=== PATIENT | female | born 1945 | race Two or more races ===

== ENCOUNTER → 2020-04-05 07:51 | Outpatient (REF) | payer MEDICARE, SELFPAY ==
--- NOTE | 2020-04-05 | NM_ITS ---
Myocardial perfusion study Indication: Chest pain to evaluate for myocardial ischemia Technique: The patient was brought in for a Lexiscan perfusion study on 04/05/2030. Patient performed low-level exercise and was injected 0.4 mg of Lexiscan intravenously. Within a minute of injection, 25 mCi of sestamibi was given intravenously. Images were obtained using the SPECT gamma camera interlaced with the gating device. Images were obtained in supine position. Resting perfusion study was performed on 04/06/2020. Patient was administered 25 mCi of sestamibi intravenously at rest. Images were then obtained in supine position. Images obtained with and without CT attenuation. Total DLP 80 [id number] Images were processed with the software and compared side to side in short axis, horizontal long axis and vertical long axis views. Findings: The stress perfusion study showed non attenuated images show normal uptake of radiotracer in all segments of LV myocardium. Attenuation corrected images shows minimally reduced uptake in the apex of the LV myocardium.. The gated study shows normal LV systolic function with calculated LVEF of 69%. LV cavity is normal in size. The gated study shows normal wall thickening and contraction of segments. Resting study shows nontender images show normal uptake of radiotracer in all segments of LV myocardium. Gating at rest reveals normal systolic wall motion with ejection fraction at greater than 70 %. The findings are consistent with normal myocardial perfusion. NM/NM natalie perf SPECT rest & str Impression: 1. Myocardial perfusion imaging study shows normal myocardial perfusion 2. Gated LVEF is 69% 3. Transient ischemic dilatation not present EKG is nondiagnostic for ischemia
--- NOTE | 2020-04-05 08:30 | CA_ITS ---
Transthoracic Echocardiogram Patient (Last, First, Middle): Lillian Samson E Gender: Female Date of : 1945 Age: 74 Procedure Date: 04/05/2020 Procedure Type: Transthoracic Echocardiogram Location: OP Height: 157.48 cm Weight: 69. kg BSA: 1.70 m2 Heart Rate: bpm BP: 171 / 87 mmHg Passenger Flagman: Ayla MD: Leroy Mcmahon MD Landscape Photographer: Carl Keating MD Symptoms: R07.9 CHEST PAIN Study Quality: Technically Difficult ECG Rhythm: Sinus Conclusions: - 1. Normal LV systolic function with impaired relaxation filling pattern 2. Limited evaluation of cardiac valves with normal cardiac valvular Doppler 3. Normal RV systolic pressure Findings Procedure Information Contrast agent, definity, is being given per protocol without apparent complications. Left Ventricle Normal left ventricular size, thickness, and systolic function. The visually estimated ejection fraction is between 60-65%. Spectral Doppler is indicative of an impaired relaxation filling pattern. E/E prime ratio is <8, consistent with normal filling pressures. Evidence suggests grade I (mild) diastolic dysfunction. Right Ventricle The right ventricle was not well visualized. Atria The left atrium was not well visualized. Interatrial shunt cannot be excluded. The right atrium was not well visualized. Aortic Valve The aortic valve was not well visualized. There is no aortic valve stenosis. There is no aortic valve regurgitation. Mitral Valve The mitral valve was not well visualized. There is trace mitral valve regurgitation. There is no mitral valve stenosis. Pulmonic Valve The pulmonic valve was not well visualized. Tricuspid Valve The tricuspid valve was not well visualized. There is trace tricuspid valve regurgitation. The right ventricular systolic pressure is normal. The right ventricular systolic pressure is 25 mmHg. There is no evidence of pulmonary hypertension. Great Vessels The aorta was not well visualized. The pulmonary artery was not well visualized. Venous The inferior vena cava is normal in size and collapses greater than 50% with inspiration. Pericardium/Pleural The pericardium was not well visualized. Prior Study Comparison No prior study available for comparison. Measurements 2D Linear Measurements Ao Root: 2.70 2.1-3.5 cm LVOT Diam: 2.00 3.0+(-)1.3 cm 2D Systolic Function EF 4C: 56.70 >55% EF 2C: 62.20 >55% EF BiP: 57.80 >55% Mitral Valve MV Pk E: 0.79 MV PK A: 0.98 MV Decel Time: 180.00 E/A: 0.80 E'Lateral: 7.74 E'Medial: 6.77 E/E' Med: 11.60 E/E' Lat: 10.20 Aortic Valve AoV Pk Maximus: 1.79 AoV Mn Maximus: 1.22 AoV VTI: 0.31 AoV Pk Grad: 13.00 Aov Mn Grad: 7.00 CHARLEY Cont.VTI: 2.29 LVOT LVOT Pk Maximus: 1.24 LVOT Mn Maximus: 0.83 LVOT VTI: 0.23 LVOT Pk Grad: 6.00 LVOT Mn Grad: 3.00 LVOT Diam: 2.00 LVOT Area: 3.14 Diastolic Function MV Pk E: 0.79 MV Pk A: 0.98 E/A: 0.80 E'Medial: 6.77 E/E' Med: 11.60 E' Laterial: 7.74 E/E' Lat: 10.20 Tricuspid Valve TR Pk Maximus: 2.33 TR Pk Grad: 22.00 RA Press: 3.00 RVSP: 25.00 Great Vessels Aorta Ao Root-2D: 2.70 2.0-3.7 cm Ao Asc: 3.30 2.1-3.4 cm Ao Arch: 2.80 Updated in Other Vendor System with Status of Final Carl Keating MD electronically signed on 04/05/2020 1:11:19 PM with status of Final
--- NOTE | 2020-04-05 09:30 | CA_ITS ---
Acquisition Time: 2020-04-05 09:06:31 Total Exercise Time: 00:02:00 Test Indications: Chest Pain Medications: SEE CHART Protocol: LEXISCAN Max HR: 120 BPM 82% of Pred: 145 BPM Max BP: 130/070 mmHG Max Work Load: 1.0 METS Pharmacological stress test using Lexiscan while sitting and kicking her feet. Pt tolerated well, Moderate SOB after lexiscan, that was completly reversed with Aminophyline 75 mg IV. No other anginal sx. EKG without any arrhythmias, non-diagnostic for ischemia. Nuclear images to follow. Normotensive response to test. Test reviewed with Dr. Khan Referred By: Leroy Mcmahon Overread By: Deshawn Shannon
== END ==
LOC: HO.CARD 07:51
PROVIDERS: Visit Provider Internal Medicine Cardiovascular Disease
DX: R07.9 Chest pain, unspecified (principal)
CPT/HCPCS: 78452; 93017; 93306; A9500; J0280; J2785; Q9957

== ENCOUNTER → 2020-04-11 13:46 | Outpatient (BNVA) | payer MEDICARE, SELFPAY | PROVIDERS: PCP Internal Medicine; Referring Provider Internal Medicine; Visit Provider Internal Medicine Cardiovascular Disease | DX: R06.00 Dyspnea, unspecified (principal); R07.89 Other chest pain; J44.9 Chronic obstructive pulmonary disease, unspecified; J96.11 Chronic respiratory failure with hypoxia; M06.9 Rheumatoid arthritis, unspecified; Z79.899 Other long term (current) drug therapy | CPT/HCPCS: 99212 ==

== ENCOUNTER → 2020-04-30 14:44 | Outpatient (BNVA) | payer MEDICARE, SELFPAY | PROVIDERS: PCP Internal Medicine; Visit Provider Hospitalist | DX: J44.9 Chronic obstructive pulmonary disease, unspecified (principal); J96.11 Chronic respiratory failure with hypoxia; J98.4 Other disorders of lung; I50.30 Unspecified diastolic (congestive) heart failure; Z99.81 Dependence on supplemental oxygen | CPT/HCPCS: 99212 ==

== ENCOUNTER 2020-05-02 13:16 | Outpatient (REF) | payer MEDICARE, SELFPAY ==
[2020-05-02 13:35] VITALS: O2SAT 98
[2020-05-02 13:43] LABS: Pt Ventilation O2% ROOM AIR
[2020-05-02 13:55] LABS: ABG PCO2 46 mmhg (32-45); PO2 ABG 71 mmhg (83-108); pH ABG 7.44 (7.35-7.45)
[2020-05-02 13:56] LABS: Base Excess ABG 5.6; HCO3 ABG 30 mmol/l (22-26); Oxygen Saturation ABG 94.7 %
== END 2020-05-02 13:17 | disposition home or self-care (01) ==
LOC: HO.RESP 13:16
PROVIDERS: Internal Medicine Pulmonary Disease; Visit Provider Hospitalist
DX: J44.9 Chronic obstructive pulmonary disease, unspecified (principal)
CPT/HCPCS: 36600; 82803

== ENCOUNTER → 2020-05-15 13:29 | Outpatient (BNVA) | payer MEDICARE, SELFPAY | PROVIDERS: PCP Internal Medicine; Visit Provider Hospitalist | DX: J96.11 Chronic respiratory failure with hypoxia (principal); J96.12 Chronic respiratory failure with hypercapnia; J41.0 Simple chronic bronchitis; J98.4 Other disorders of lung; I50.32 Chronic diastolic (congestive) heart failure | CPT/HCPCS: 99212 ==

== ENCOUNTER 2021-12-30 15:53 | Outpatient (REF) | payer MEDICARE, SELFPAY ==
--- NOTE | ~2021-12-30 | XR_ITS ---
EXAMINATION: XR CHEST CLINICAL INFORMATION: Interstitial pulmonary disease. COMPARISON: CTA chest 03/02/2020. TECHNIQUE: 2 views of the chest were obtained. FINDINGS: There is moderate opacification right lung base likely a combination of infiltrate/atelectasis/pleural effusion. The lungs are hypoexpanded. The left lung is clear. Heart size is enlarged. Pulmonary vascularity is normal. There are compression deformities with cement augmentation mid thoracic spine, likely T8, T9 and T10 vertebra. Also visualized are compression deformities without cement T11, T12, L1 vertebra. XR/XR chest 2V IMPRESSION: Hypoexpanded lungs with right lower lobe diffuse opacity likely a combination of effusion/atelectasis/infiltrate.
[2021-12-30 16:11] LABS: MANUAL DIFF FLAG NO
[2021-12-30 16:32] LABS: Basophils Percent Auto 0.3 % (0-2); Eosinophils Percent Auto 0.2 % (0-4); Hematocrit 37.1 % (37.0-47.0); Hemoglobin 11.3 g/dl (12.0-16.0); Imm Gran Abs Auto 0.15 X10*3/uL (0.00-0.03); Imm Gran Pct Auto 1.3 % (0.0-0.4); Lymphocytes Absolute Auto 1.2 X10*3/uL (1.2-4.9); Lymphocytes Percent Auto 10.4 % (20-40); Mean Corpuscular HGB Conc 30.5 g/dl (31.0-35.0); Mean Corpuscular Hemoglobin 30.6 pg (27.0-33.0); Mean Corpuscular Volume 100.5 fL (80.0-98.0); Mean Platelet Volume 10.7 fL (9.4-12.3); Monocytes Absolute Auto 0.7 X10*3/uL (0.1-1.2); Monocytes Percent Auto 6.1 % (2-11); NRBC Pct Auto 0.2 /100WBC (0.0-0.2); Neutrophils Absolute Auto 9.3 x10*3/uL (2.0-8.3); Neutrophils Percent Auto 81.7 % (45-73); Platelet Count 304 X10*3/uL (160-400); Red Blood Count 3.69 X10*6/uL (4.20-5.50); Red Cell Distribution Width 16.3 % (11.0-16.0); White Blood Count 11.4 X10*3/uL (4.8-10.8)
[2021-12-30 16:50] LABS: Alanine Aminotransferase 13 U/L (0-31); Albumin Level 3.7 g/dL (3.5-5.0); Alkaline Phosphatase 68 U/L (39-117); Anion Gap 10 (12-20); Aspartate Amino Transferase 17 U/L (5-31); Bilirubin Direct 0.2 mg/dL (0.0-0.5); Bilirubin Total 0.3 mg/dL (0.0-1.0); Blood Urea Nitrogen 19 mg/dL (9-16); Calcium 8.8 mg/dL (8.4-10.2); Carbon Dioxide 33 mmol/L (22-29); Chloride 110 mmol/L (96-108); Estimated Glomerular Filt Rate > 60; Glucose Random 124 mg/dL (60-115); Potassium 3.7 mmol/L (3.3-5.1); Sodium 149 mmol/L (135-145); Total Protein 5.7 g/dL (6.5-8.0)
[2021-12-30 16:56] LABS: B Type Natriuretic Peptide 52 pg/mL (<100)
[2021-12-30 17:15] LABS: Erythrocyte Sedimentation Rate 44 MM/HR (0-20)
[2021-12-31 12:32] LABS: Anti Nuclear Antibody Screen NEGATIVE (NEGATIVE)
[2021-12-31 15:17] LABS: Cyclic Citrullinated Peptide 43 UNITS
[2022-01-01 11:36] LABS: Immunoglobulin E 12 kU/L (<OR=114)
== END 2021-12-30 15:54 | disposition home or self-care (01) ==
LOC: HO.XRAY 15:53
PROVIDERS: PCP Internal Medicine; Visit Provider Hospitalist
DX: R07.81 Pleurodynia (principal); J96.11 Chronic respiratory failure with hypoxia; J96.12 Chronic respiratory failure with hypercapnia; J41.0 Simple chronic bronchitis; J98.4 Other disorders of lung; J84.9 Interstitial pulmonary disease, unspecified; G47.33 Obstructive sleep apnea (adult) (pediatric); I50.32 Chronic diastolic (congestive) heart failure
CPT/HCPCS: 36415; 71046; 80048; 80076; 82785; 83880; 85025; 85652; 86038; 86039; 86200; 94618; 99212

== ENCOUNTER → 2022-02-04 13:11 | Outpatient (BNVA) | payer MEDICARE, SELFPAY | PROVIDERS: PCP Internal Medicine; Visit Provider Nurse Practitioner Family | DX: R07.9 Chest pain, unspecified (principal); I25.2 Old myocardial infarction; I50.32 Chronic diastolic (congestive) heart failure; J84.9 Interstitial pulmonary disease, unspecified; J96.11 Chronic respiratory failure with hypoxia; J96.12 Chronic respiratory failure with hypercapnia | CPT/HCPCS: 93005; 99212 ==

== ENCOUNTER → 2022-02-09 19:30 | Outpatient (REF) | payer MEDICARE, SELFPAY | LOC: HO.SL 19:30 | PROVIDERS: PCP Internal Medicine; Visit Provider Hospitalist | DX: G47.33 Obstructive sleep apnea (adult) (pediatric) (principal) | CPT/HCPCS: 95810 ==

== ENCOUNTER → 2022-02-27 14:23 | Outpatient (REF) | payer MEDICARE, SELFPAY ==
--- NOTE | 2022-02-27 14:26 | CA_ITS ---
Transthoracic Echocardiogram Patient (Last, First, Middle): Lillian Samson E Gender: Female Date of : 1945 Age: 76 Procedure Date: 02/27/2022 Procedure Type: Transthoracic Echocardiogram Location: OP Height: 149.86 cm Weight: 56.7 kg BSA: 1.51 m2 Heart Rate: bpm BP: 120 / 68 mmHg Heater Planer Operator: SB Referring MD: Wendy Hess LEAD COOKZachC Symptoms: I21.4 - Non-ST elevation (NSTEMI) myocardial infarction Study Quality: Fair but adequate ECG Rhythm: Sinus arrhythmia Conclusions: - The left ventricular systolic function is normal. The visually estimated ejection fraction is between 55-60%. - Moderate to severe focal hypertrophy of the basal septum. - The basal inferior segment is hypokinetic. - There is mild to moderately decreased right ventricular systolic function. - No obvious valvular pathology seen on this study. Findings Left Ventricle Normal left ventricular cavity size. There is normal left ventricular wall thickness. The left ventricular systolic function is normal. The visually estimated ejection fraction is between 55-60%. E/E prime ratio is between 8 and 15 consistent with indeterminate filling pressures. Evidence suggests grade I (mild) diastolic dysfunction. Moderate to severe focal hypertrophy of the basal septum. Wall Motion Rest Echo Findings The basal inferior segment is hypokinetic. Right Ventricle Normal right ventricular cavity size. There is mild to moderately decreased right ventricular systolic function. Atria Both atria are normal in size. Aortic Valve The aortic valve structure and function is likely normal. There is no aortic valve stenosis. There is no aortic valve regurgitation. Mitral Valve The mitral valve appears normal. There is no mitral valve regurgitation. There is no mitral valve stenosis. Pulmonic Valve The pulmonic valve is likely normal. Tricuspid Valve There is trace tricuspid valve regurgitation. There is no evidence of pulmonary hypertension. Great Vessels The asc aorta is normal in size. Small plaque is seen in the sino tubular ridge. Venous The inferior vena cava is normal in size and collapses less than 50% with inspiration. Pericardium/Pleural There is no evidence of pericardial effusion. Prior Study Comparison Changes noted compared to prior study dated: 04/05/2020. See comments on wall motion and right ventricle. Recommendations, Care & Conclusions No obvious valvular pathology seen on this study. Measurements 2D Linear Measurements IVSd: 0.96 0.6-0.9/0.6-1.0 cm LVIDd: 3.90 3.9-5.3/4.2-5.9 cm LVIDd Index: 2.58 2.4-3.2/2.2-3.1 cm/m2 LVIDs: 2.47 2.0-3.6 cm LVPWd: 1.00 0.7-1.1 cm LA Diam: 2.90 2.7-3.8/3.0-4.0 cm LAIDs Index: 1.92 1.5-2.3 cm/m2 LV Mass: 147.05 67-162/88-224 g LV Mass Index: 97.39 43-95/49-115 g/m2 LVOT Diam: 2.20 3.0+(-)1.3 cm 2D Systolic Function EF 4C: 52.50 >55% EF 2C: 54.00 >55% EF BiP: 53.50 >55% Mitral Valve MV Pk E: 0.51 MV PK A: 0.89 MV Decel Time: 242.00 E/A: 0.60 E'Lateral: 4.90 E'Medial: 2.94 E/E' Med: 17.30 E/E' Lat: 10.40 PHT: 71.00 MVA PHT: 3.10 Decel [place]: 2.11 Aortic Valve AoV Pk Maximus: 1.04 AoV Mn Maximus: 0.71 AoV VTI: 0.18 AoV Pk Grad: 4.00 Aov Mn Grad: 2.00 CHARLEY Cont.VTI: 3.50 LVOT LVOT Pk Maximus: 0.80 LVOT Mn Maximus: 0.55 LVOT VTI: 0.16 LVOT Pk Grad: 3.00 LVOT Mn Grad: 1.00 LVOT Diam: 2.20 LVOT Area: 3.80 Diastolic Function MV Pk E: 0.51 MV Pk A: 0.89 E/A: 0.60 E'Medial: 2.94 E/E' Med: 17.30 E' Laterial: 4.90 E/E' Lat: 10.40 Right Ventricle TAPSE (mm): 10.20 TVS' Maximus: 9.57 Tricuspid Valve RA Press: 8.00 Great Vessels Aorta Sinus of Valsalva: 3.10 2.0-3.5 cm Ao Asc: 3.50 2.1-3.4 cm Pulmonary Valve PV Pk Maximus: 0.74 Peak PV Grad: 2.00 Updated in Other Vendor System with Status of Final Aden Khan MD electronically signed on 02/28/2022 9:35:23 AM with status of Final
== END ==
LOC: HO.CARD 14:23
PROVIDERS: Visit Provider Nurse Practitioner Family
DX: R07.9 Chest pain, unspecified (principal); I50.32 Chronic diastolic (congestive) heart failure; I21.4 Non-ST elevation (NSTEMI) myocardial infarction
CPT/HCPCS: 93306

== ENCOUNTER → 2022-02-28 14:06 | Outpatient (BNVA) | payer MEDICARE, SELFPAY | PROVIDERS: PCP Internal Medicine; Visit Provider Hospitalist | DX: J96.11 Chronic respiratory failure with hypoxia (principal); J96.12 Chronic respiratory failure with hypercapnia; J41.0 Simple chronic bronchitis; J98.4 Other disorders of lung; I50.32 Chronic diastolic (congestive) heart failure; J84.9 Interstitial pulmonary disease, unspecified | CPT/HCPCS: 99212 ==

== ENCOUNTER → 2022-03-04 09:42 | Outpatient (REF) | payer MEDICARE, SELFPAY ==
--- NOTE | ~2022-03-04 | NM_ITS ---
Myocardial perfusion study Indication: NSTEMI to evaluate for myocardial ischemia Technique: The patient was brought in for a Lexiscan perfusion study on 03/04/2022. Patient performed low-level exercise and was injected 0.4 mg of Lexiscan intravenously. Within a minute of injection, 25 mCi of sestamibi was given intravenously. Images were obtained using the SPECT gamma camera interlaced with the gating device. Images were obtained in supine position. Resting perfusion study was performed on 03/19/2022. Patient was administered 25 mCi of sestamibi intravenously at rest. Images were then obtained in supine position. Images obtained with and without CT attenuation. Total DLP 100 mGy-cm. Images were processed with the software and compared side to side in short axis, horizontal long axis and vertical long axis views. Findings: The stress perfusion study showed non attenuated images show overall normal uptake of radiotracer in all segments of LV myocardium. Attenuation corrected images show minimally reduced uptake in the apex of the LV myocardium.. The gated study shows normal LV systolic function with visually estimated LVEF of greater than 60%. LV cavity is normal size. The gated study shows normal systolic wall thickening and contraction of segments. Resting study shows non attenuated images show mildly reduced uptake in the inferolateral wall of the LV myocardium. Attenuation corrected images show no change compared to stress perfusion study. Gating at rest reveals normal systolic wall motion with ejection fraction at greater than 70%. The findings are consistent with likely normal myocardial perfusion. SD/NM cardiolite stress test Impression: 1. Myocardial perfusion imaging study shows likely normal myocardial perfusion 2. Gated LVEF is greater than 70% 3. Transient ischemic dilatation not present EKG is nondiagnostic for ischemia
--- NOTE | 2022-03-04 09:45 | CA_ITS ---
Acquisition Time: 2022-03-04 10:47:49 Total Exercise Time: 00:02:00 Test Indications: CP, SOB Medications: SEE CHART Protocol: LEXISCAN Max HR: 134 BPM 93% of Pred: 143 BPM Max BP: 132/088 mmHG Max Work Load: 1.0 METS Pharmacological stress test with Lexiscan injection, while sitting and kicking her legs, with moderate sob and feeling of pressure in back of head, no chest discomfort, with isolated PACs, PVCs, one ventricular cuplet, wth normotensive response to injection, with nondiagnostic EKG for ischemia. In recovery she was treated with Aminophylline 75 mg IVP to reverse Lexiscan with resolution of symptoms. Nuclear images pending. Test reviewed with Dr Mcmahon Referred By: Wendy Hess Overread By: WENDY HESS
== END ==
LOC: HO.CARD 09:42
PROVIDERS: Visit Provider Nurse Practitioner Family
DX: I21.4 Non-ST elevation (NSTEMI) myocardial infarction (principal); R07.9 Chest pain, unspecified; J84.9 Interstitial pulmonary disease, unspecified; J96.11 Chronic respiratory failure with hypoxia; J96.12 Chronic respiratory failure with hypercapnia
CPT/HCPCS: 78452; 93017; A9500; J0280; J2785

== ENCOUNTER → 2022-04-01 13:58 | Outpatient (BNVA) | payer MEDICARE, SELFPAY | PROVIDERS: PCP Internal Medicine; Visit Provider Nurse Practitioner Family | DX: I21.4 Non-ST elevation (NSTEMI) myocardial infarction (principal); R07.9 Chest pain, unspecified; J84.9 Interstitial pulmonary disease, unspecified; I50.32 Chronic diastolic (congestive) heart failure; J96.11 Chronic respiratory failure with hypoxia; J96.12 Chronic respiratory failure with hypercapnia | CPT/HCPCS: 99212 ==

== ENCOUNTER 2022-05-08 17:49 | Inpatient (IN) | payer MEDICARE, SELFPAY ==
--- NOTE | ~2022-05-08 | CT_ITS ---
CT ANGIOGRAM NECK WITH CONTRAST CT ANGIOGRAM BRAIN WITH CONTRAST CLINICAL INFORMATION: TIAs. COMPARISON: None available. TECHNIQUE: Test bolus sequences followed by intravenous administration 85 mL of Omnipaque 350. Helical imaging was performed in the axial plane from the thoracic inlet to the skull vertex. Delayed postcontrast imaging of the head was also performed. The data was processed at the polysomnography technologist workstation for generation of MIP sequences. Angled MIPs and volume rendered reformatted images were also generated at an offline 3D workstation under concurrent supervision. Stenoses are assessed in accordance with NASCET criteria unless otherwise indicated. This CT examination was performed using dose optimization techniques as appropriate, variously including the following: *Automated exposure control *Adjustment of mA and/or kV according to patient size (this includes techniques or standardized protocols for targeted exams where dose is matched to indication/reason for exam; i.e. extremities or head) *Use of iterative reconstruction technique FINDINGS: BRAIN: There is increased density and enhancement along the periphery of the right central sulcus. It is difficult to assess whether this reflects cortical increased density versus sulcal increased density as could be seen in acute subarachnoid hemorrhage. MRI would be helpful in further assessment. There is no mass effect and there are no large acute territorial infarcts. [There is no hydrocephalus, extra-axial surface collection, midline shift, or other herniation pattern. [place] to white matter differentiation is diffusely maintained without evidence of an evolved acute territorial infarct. The basilar cisterns are preserved. No significant soft tissue abnormality. No acute osseous abnormality. There are large bilateral mastoid effusions and the left middle ear cavity is partially opacified. Left sphenoid sinus is completely opacified, and the maxillary sinuses are nearly completely opacified bilaterally, and the anterior left ethmoid air cells are partially opacified. CERVICAL SOFT TISSUES AND LUNG APICES: [Postoperative changes following posterior instrumented fusion from the occiput through the C5 level. There is significant lucency surrounding the C5 lateral mass screws bilaterally compatible with hardware loosening. There is also significant lucency surrounding the distal aspect of the vertical connecting rods that deforms the posterior elements of C7 on T1. There are surgical/orthopedic consultation advised. Advanced spondylitic changes at C5-C6 and C6-C7. Multinodular thyroid gland including a dominant 1.6 cm nodule within the left thyroid lobe that should be further assessed with ultrasound. NECK CTA: [There is a classic 3 vessel configuration of the aortic arch. Proximal arch vessels are non-stenotic. The vertebral arteries are codominant. No significant ostial stenosis is visualized on either side. Both vertebral arteries are widely patent throughout their extracranial cervical course. Retropharyngeal course of the common carotid arteries bilaterally and the proximal internal carotid arteries bilaterally. Common carotid arteries and the cervical internal carotid arteries remain widely patent. BRAIN CTA: [There is normal opacification of major intracranial arteries. No focal flow-limiting stenosis nor discrete proximal large artery occlusion. No aneurysm. Timing of the contrast bolus allows assessment of the major dural venous sinuses, which all opacify normally] CT/CT angio head neck IMPRESSION: - There is increased density and enhancement along the periphery of the right central sulcus. It is difficult to assess whether this reflects cortical increased density as could be seen with cortical laminar necrosis versus sulcal increased density as could be seen in acute subarachnoid hemorrhage with reactive enhancement or alternative pathology. MRI of the brain with and without IV contrast would be helpful in further assessment. There is no mass effect and there are no large acute territorial infarcts. -No acute arterial occlusions and no significant arterial stenoses within the head or neck. - There are large bilateral mastoid effusions and the left middle ear cavity is partially opacified. Left sphenoid sinus is completely opacified, and the maxillary sinuses are nearly completely opacified bilaterally, and the anterior left ethmoid air cells are partially opacified. - Postoperative changes following posterior instrumented fusion from the occiput through the C5 level. There is significant lucency surrounding the C5 lateral mass screws bilaterally compatible with hardware loosening. There is also significant lucency surrounding the distal aspect of the vertical connecting rods that deforms the posterior elements of C7 and T1. There are surgical/orthopedic consultation advised. Advanced spondylitic changes at C5-C6 and C6-C7. There is significant lucency involving the odontoid process measuring near fat density that should be correlated with previous CT studies if available. Chronic appearing widening of the atlantodental interval. - Multinodular thyroid gland including a dominant 1.6 cm nodule within the left thyroid lobe that should be further assessed with ultrasound. Findings discussed with Dr. Joseph at 10:03 PM on 05/08/2022.
--- NOTE | ~2022-05-08 | CT_ITS ---
EXAMINATION: CT CHEST WITHOUT CONTRAST CLINICAL INFORMATION: Pain. Rule out pneumonia. COMPARISON: Previous chest x-ray December 2021 and chest CTA February 2020 TECHNIQUE: Multidetector volumetric CT imaging of the chest was done. Axial MIP volume rendering provided. Sagittal and coronal reformatted images were obtained. This CT examination was performed using dose optimization techniques as appropriate, variously including the following: *Automated exposure control *Adjustment of mA and/or kV according to patient size (this includes techniques or standardized protocols for targeted exams where dose is matched to indication/reason for exam; i.e. extremities or head) *Use of iterative reconstruction technique DLP: 223 mGy-cm FINDINGS: LUNGS: There is elevation of the right hemidiaphragm. There is atelectasis or consolidation of the adjacent right middle and right lower lobes. There is subsegmental atelectasis in the bilateral upper lobes. There is mild bronchial wall thickening, increased peribronchial attenuation and groundglass attenuation in the left lower lobe suggestive of bronchopneumonia. There is a 8 mm left lower lobe nodule axial image 153 series 7 this is new from 2020 exam. MEDIASTINUM: Normal heart size. No pericardial effusion. Mild coronary artery calcification. Tortuous thoracic aorta. No enlarged hilar or mediastinal lymph nodes. CORONARY ARTERY CALCIFICATION: Mild PLEURA: Trace right pleural effusion or pleural thickening. AXILLA: No lymphadenopathy. UPPER ABDOMEN: There is a large stone in the upper pole of the right kidney. There is a small calcification in the liver. OSSEOUS STRUCTURES: There are multiple thoracic vertebral body compression fractures. There is evidence of cement cement augmentation. There is a moderate T4 vertebral body compression fracture that appears sclerotic and may be recent. There is mild anterior subluxation of C7 with respect to C6 and T1 that is stable. There are postsurgical changes to the cervical spine. There are postsurgical changes to the right humerus. Multiple old left rib fractures. CT/CT chest wo IV con IMPRESSION: Left lower lobe bronchopneumonia. Elevation of the right hemidiaphragm and atelectasis or consolidation of the adjacent right middle and right lower lobes. Trace right pleural effusion or pleural thickening. 8 mm left lower lobe nodule. According to the UPDATED 2017 Fleischner Society recommendations, the advised follow-up imaging for 6-8 mm nodule: 6-12 and 18-[address] follow-up for low and high risk patients. Multiple thoracic vertebral body compression fractures. There is a moderate T4 vertebral body compression fracture that appears sclerotic and may be recent. Fleischner guidelines were followed.
--- NOTE | ~2022-05-08 | MR_ITS ---
EXAMINATION: MR BRAIN WITHOUT AND WITH CONTRAST CLINICAL INFORMATION: Transient ischemic attack like symptoms. COMPARISON: CT angiogram of the head 05/08/2022. TECHNIQUE: Multiplanar MR imaging of the brain was performed without and with contrast. A total of 5.5 mL Gadavist was utilized for this examination. FINDINGS: There is subarachnoid blood filling the left precentral sulcus, the signal characteristics of which indicate a late subacute age and there is hemosiderin staining along the margins of the hematoma demonstrated on susceptibility weighted imaging. No acute territorial infarct. Intracranial vascular flow voids are grossly maintained. There are scattered nonspecific foci of T2 FLAIR signal hyperintensity primarily distributed within the periventricular white matter. Postcontrast images reveal no abnormal intracranial mass or enhancement. No intracranial mass effect or midline shift shift. Lateral and third ventricles are normal. No hydrocephalus. Bridging bone fuses the craniocervical junction and multiple consecutive vertebral segments within the upper cervical spine. Cervicomedullary cells and mastoid air cells and middle ear cavities. There is also severe paranasal sinus disease. Incidental note is made of a persistent hyperplastic primary vitreous within the left globe. MR/MR head/brain wo/w con IMPRESSION: There is a late subacute subarachnoid blood filling the right central sulcus which coincides with the findings associated on the recent CT angiogram of the head from 05/08/2022. The etiology of this blood is uncertain. No identifiable mass or worrisome enhancement at or adjacent to the hemorrhage. Otherwise no acute intracranial finding. Specifically no evidence of acute territorial infarct. Numerous chronic small vessel ischemic changes are visualized within the periventricular white matter and riki. Additional incidental findings include fluid filling the mastoid air cells and middle ear cavities. Severe paranasal sinus disease. Persistent hyperplastic primary vitreous of the left globe. Chronic changes of a craniocervical fusion.
--- NOTE | ~2022-05-08 | XR_ITS ---
EXAMINATION: XR ABDOMEN KUB CLINICAL INDICATION: MRI screening. COMPARISON: None TECHNIQUE: AP view of the abdomen. FINDINGS: There is a nonobstructive bowel gas pattern. Mild gas and stool are seen within the colon distally to the rectum. Residual contrast is seen within the renal collecting systems and urinary bladder. The osseous structures are unremarkable. XR/XR KUB IMPRESSION: 1. Nonobstructive bowel gas pattern. 2. Mild colonic stool burden. 3. Residual contrast within the renal collecting system/urinary bladder.
[2022-05-08 18:58] VITALS: BP 175/97; PULSE 103; RESP 20; TEMP 36.2; O2SAT 90; BMI 23.4
--- NOTE | 2022-05-08 19:01 | ECG_ITS ---
Test Reason : ?STROKE Blood Pressure : / mmHG Vent. Rate : 092 BPM Atrial Rate : 092 BPM P-R Int : 132 ms QRS Dur : 070 ms QT Int : 362 ms P-R-T Axes : 035 -21 032 degrees QTc Int : 447 ms Normal sinus rhythm Inferior infarct , age undetermined Abnormal ECG No previous ECGs available Referred By: Kenn James Electronically Signed By:Leroy Mcmahon
--- NOTE | 2022-05-08 19:02 | ED_ITS ---
HPI - General Adult General Chief complaint: Neuro Symptoms/Deficit <DORCAS Mayo - Last Filed: 05/11/22 10:00> Stated complaint: left facial droop and numbness <DORCAS Mayo - Last Filed: 05/11/22 10:00> Time Seen by Provider: 05/08/22 19:12 <DORCAS Mayo - Last Filed: 05/11/22 10:00> Related Data Home medications: Home Medications Medication Instructions Recorded Confirmed aspirin 81 mg tablet,delayed 81 mg PO DAILY 12/30/21 05/09/22 release atorvastatin 40 mg tablet 1 tab PO DAILY 05/09/22 05/09/22 fluticasone propionate 220 2 puff inhalation BID 05/09/22 05/09/22 mcg/actuation HFA aerosol inhaler (Flovent HFA) lisinopril 5 mg tablet 1 tab PO DAILY 05/09/22 05/09/22 meclizine 25 mg tablet 1 tab PO QAM 05/09/22 05/09/22 metoprolol succinate 100 mg 1.5 tab PO DAILY 05/09/22 05/09/22 tablet,extended release 24 hr mirtazapine 30 mg tablet 1 tab PO BEDTIME 05/09/22 05/09/22 montelukast 10 mg tablet 1 tab PO DAILY 05/09/22 05/09/22 pantoprazole 40 mg tablet,delayed 1 tab PO DAILY 05/09/22 05/09/22 release prednisone 5 mg tablet 1 tab PO TID 05/09/22 05/09/22 tramadol 50 mg tablet 1 tab PO TID PRN Pain 05/09/22 05/09/22 venlafaxine 75 mg capsule,extended 1 cap PO DAILY 05/09/22 05/09/22 release 24 hr <DORCAS Mayo - Last Filed: 05/11/22 10:00> Allergies/adverse reactions: Allergies Allergy/AdvReac Type Severity Reaction Status Date / Time codeine Allergy Severe hives Verified 04/01/22 14:19 <DORCAS Mayo - Last Filed: 05/11/22 10:00> PMF Past Medical History Medical History: Medical History Chronic respiratory failure Chronic restrictive lung disease COPD (chronic obstructive pulmonary disease) Diastolic CHF MORENO (dyspnea on exertion) ILD (interstitial lung disease) Pleuritic chest pain <DORCAS Mayo - Last Filed: 05/11/22 10:00> Social History Social History: Social History Household Members: Family Housing: Apartment Do you presently have visiting nurse or other home services: Yes Alcohol intake: never Patient Tobacco Use Status: Never used Tobacco service: No Current occupational status: disabled <DORCAS Mayo - Last Filed: 05/11/22 10:00> Physical Exam ED Vital Signs: Vital Signs - 24 hr 05/08/22 18:58 05/08/22 19:31 05/08/22 22:22 Temperature 97.2 F 98.1 F 98.4 F Pulse Rate 103 H 96 92 Respiratory Rate 20 21 H 22 H Blood Pressure 175/97 H 177/95 H 148/76 H Pulse Oximetry 90 L 96 97 Oxygen Delivery Method Room Air Nasal Cannula Room Air Oxygen Flow Rate 2 05/09/22 00:37 Temperature 98.1 F Pulse Rate 84 Respiratory Rate 22 H Blood Pressure 138/75 Pulse Oximetry 97 Oxygen Delivery Method Nasal Cannula Oxygen Flow Rate 2 BMI result Body Mass Index 23.4 <DORCAS Mayo - Last Filed: 05/11/22 10:00> Vital Signs - 24 hr 05/08/22 18:58 05/08/22 19:31 05/08/22 22:22 Temperature 97.2 F 98.1 F 98.4 F Pulse Rate 103 H 96 92 Respiratory Rate 20 21 H 22 H Blood Pressure 175/97 H 177/95 H 148/76 H Pulse Oximetry 90 L 96 97 Oxygen Delivery Method Room Air Nasal Cannula Room Air Oxygen Flow Rate 2 05/09/22 00:37 Temperature 98.1 F Pulse Rate 84 Respiratory Rate 22 H Blood Pressure 138/75 Pulse Oximetry 97 Oxygen Delivery Method Nasal Cannula Oxygen Flow Rate 2 BMI result Body Mass Index 23.4 <Al Joseph MD - Last Filed: 05/09/22 02:26> Course Course Course Narrative: ALBERTA: Brought to the ED for resolved left facial droop that occurred at 4:30pm and left arm numbness. Patiend and daughter states symptoms resolved after 5 minutes. Daugher states patient has had this everyday for the past 3 days at the same time. Presently no neuro deficits. generalized pain due to Rheamutoid arthritis. labs and HEad CT scan ordered. Charged nurse notified and went to room 3. Informed Dr[address] Joseph about case and orders placed. NIH score 0. Not on any blood thinners or history of brain bleed. <DORCAS Mayo - Last Filed: 05/11/22 10:00> Medications Administered Generic Name Dose Route Start Last Admin Trade Name Freq PRN Reason Stop Dose Admin Acetaminophen 650 mg 05/09/22 00:52 05/10/22 16:30 Acetaminophen 325 Mg Tablet PO 650 mg Q6H PRN Administration Pain, Mild (Pain Scale 1-3) Atorvastatin Calcium 40 mg 05/09/22 09:00 05/11/22 09:10 Atorvastatin Calcium 40 Mg Tablet PO 40 mg DAILY CEDRIC Administration Fluticasone Propionate 2 puff 05/09/22 20:00 05/11/22 07:56 Fluticasone Propionate 250 Mcg Blst.W.Dev INHALE 2 puff RBID CEDRIC Administration Azithromycin 500 mg/ Sodium 250 mls @ 125 mls/hr 05/09/22 07:00 05/11/22 09:25 Chloride IV Infused Q24H CEDRIC Infusion Ceftriaxone Sodium 1 gm/ 50 mls @ 100 mls/hr 05/09/22 23:00 05/10/22 20:20 Sodium Chloride IV Infused Q24H CEDRIC Infusion Lisinopril 5 mg 05/09/22 09:00 05/11/22 09:11 Lisinopril 5 Mg Tablet PO 5 mg DAILY CEDRIC Administration Protocol Meclizine HCl 25 mg 05/09/22 08:15 05/11/22 09:11 Meclizine Hcl 25 Mg Tablet PO 25 mg DAILY CEDRIC Administration Metoprolol Succinate 150 mg 05/09/22 09:00 05/11/22 09:09 Metoprolol Succinate Er 50 Mg Tab.Er.24h PO 150 mg DAILY CEDRIC Administration Protocol Mirtazapine 30 mg 05/09/22 21:00 05/10/22 19:38 Mirtazapine 30 Mg Tablet PO 30 mg BEDTIME CEDRIC Administration Montelukast Sodium 10 mg 05/09/22 09:00 05/11/22 09:09 Montelukast Sodium 10 Mg Tablet PO 10 mg DAILY CEDRIC Administration Omeprazole 20 mg 05/11/22 06:30 05/11/22 09:10 Omeprazole 20 Mg Capsule.Dr PO 20 mg DAILY@0630 CEDRIC Administration Prednisone 5 mg 05/09/22 09:00 05/11/22 09:11 Prednisone 5 Mg Tablet PO 5 mg TID CEDRIC Administration Sodium Chloride 3 ml 05/09/22 08:00 05/11/22 09:09 0.9 % Sodium Chloride Flush 3 Ml Syringe IVFLUSH Not Given QSHIFT [facility] Venlafaxine HCl 75 mg 05/09/22 21:00 05/10/22 19:38 Venlafaxine Hcl Er 75 Mg Cap.Er.24h PO 75 mg BEDTIME CEDRIC Administration Discontinued Medications Generic Name Dose Route Start Last Admin Trade Name Freq PRN Reason Stop Dose Admin Gadobutrol 7.5 ml 05/09/22 14:39 05/09/22 14:40 Gadobutrol 7.5 Ml Vial IVPUSH 05/09/22 14:40 5.5 ml ONCE ONE Administration Heparin Sodium (Porcine) 5,000 unit 05/09/22 01:00 05/09/22 01:42 Heparin Sodium,Porcine 5,000 Unit/Ml Vial SUBCUT 5,000 unit Q12H CEDRIC Administration Hydroxyzine HCl 25 mg 05/09/22 20:15 05/09/22 20:24 Hydroxyzine Hcl 25 Mg Tablet PO 05/09/22 20:16 25 mg ONCE ONE Administration Ceftriaxone Sodium 1 gm/ 50 mls @ 100 mls/hr 05/08/22 22:21 05/08/22 23:47 Sodium Chloride IV 05/08/22 22:50 Infused ONCE ONE Infusion Doxycycline Hyclate 100 mg/ 250 mls @ 166.67 mls/hr 05/08/22 22:22 05/09/22 02:00 Sodium Chloride IV 05/08/22 23:51 Infused ONCE ONE Infusion Iohexol 85 ml 05/08/22 21:00 05/08/22 21:16 Iohexol 350 Mg/Ml 100 Ml Infus..Btl IV 05/08/22 21:01 85 ml ONCE ONE Administration Venlafaxine HCl 75 mg 05/09/22 09:00 05/09/22 10:37 Venlafaxine Hcl Er 75 Mg Cap.Er.24h PO Not Given DAILY CEDRIC <DORCAS Mayo - Last Filed: 05/11/22 10:00> Medications Administered Generic Name Dose Route Start Last Admin Trade Name Carlos PRN Reason Stop Dose Admin Acetaminophen 650 mg 05/09/22 00:52 05/10/22 16:30 Acetaminophen 325 Mg Tablet PO 650 mg Q6H PRN Administration Pain, Mild (Pain Scale 1-3) Atorvastatin Calcium 40 mg 05/09/22 09:00 05/11/22 09:10 Atorvastatin Calcium 40 Mg Tablet PO 40 mg DAILY CEDRIC Administration Fluticasone Propionate 2 puff 05/09/22 20:00 05/11/22 07:56 Fluticasone Propionate 250 Mcg Blst.W.Dev INHALE 2 puff RBID CEDRIC Administration Azithromycin 500 mg/ Sodium 250 mls @ 125 mls/hr 05/09/22 07:00 05/11/22 09:25 Chloride IV Infused Q24H CEDRIC Infusion Ceftriaxone Sodium 1 gm/ 50 mls @ 100 mls/hr 05/09/22 23:00 05/10/22 20:20 Sodium Chloride IV Infused Q24H CEDRIC Infusion Lisinopril 5 mg 05/09/22 09:00 05/11/22 09:11 Lisinopril 5 Mg Tablet PO 5 mg DAILY CEDRIC Administration Protocol Meclizine HCl 25 mg 05/09/22 08:15 05/11/22 09:11 Meclizine Hcl 25 Mg Tablet PO 25 mg DAILY CEDRIC Administration Metoprolol Succinate 150 mg 05/09/22 09:00 05/11/22 09:09 Metoprolol Succinate Er 50 Mg Tab.Er.24h PO 150 mg DAILY CEDRIC Administration Protocol Mirtazapine 30 mg 05/09/22 21:00 05/10/22 19:38 Mirtazapine 30 Mg Tablet PO 30 mg BEDTIME CEDRIC Administration Montelukast Sodium 10 mg 05/09/22 09:00 05/11/22 09:09 Montelukast Sodium 10 Mg Tablet PO 10 mg DAILY CEDRIC Administration Omeprazole 20 mg 05/11/22 06:30 05/11/22 09:10 Omeprazole 20 Mg Capsule.Dr PO 20 mg DAILY@0630 CEDRIC Administration Prednisone 5 mg 05/09/22 09:00 05/11/22 09:11 Prednisone 5 Mg Tablet PO 5 mg TID CEDRIC Administration Sodium Chloride 3 ml 05/09/22 08:00 05/11/22 09:09 0.9 % Sodium Chloride Flush 3 Ml Syringe IVFLUSH Not Given QSHIFT CEDRIC Venlafaxine HCl 75 mg 05/09/22 21:00 05/10/22 19:38 Venlafaxine Hcl Er 75 Mg Cap.Er.24h PO 75 mg BEDTIME CEDRIC Administration Discontinued Medications Generic Name Dose Route Start Last Admin Trade Name Maurilioq PRN Reason Stop Dose Admin Gadobutrol 7.5 ml 05/09/22 14:39 05/09/22 14:40 Gadobutrol 7.5 Ml Vial IVPUSH 05/09/22 14:40 5.5 ml ONCE ONE Administration Heparin Sodium (Porcine) 5,000 unit 05/09/22 01:00 05/09/22 01:42 Heparin Sodium,Porcine 5,000 Unit/Ml Vial SUBCUT 5,000 unit Q12H CEDRIC Administration Hydroxyzine HCl 25 mg 05/09/22 20:15 05/09/22 20:24 Hydroxyzine Hcl 25 Mg Tablet PO 05/09/22 20:16 25 mg ONCE ONE Administration Ceftriaxone Sodium 1 gm/ 50 mls @ 100 mls/hr 05/08/22 22:21 05/08/22 23:47 Sodium Chloride IV 05/08/22 22:50 Infused ONCE ONE Infusion Doxycycline Hyclate 100 mg/ 250 mls @ 166.67 mls/hr 05/08/22 22:22 05/09/22 02:00 Sodium Chloride IV 05/08/22 23:51 Infused ONCE ONE Infusion Iohexol 85 ml 05/08/22 21:00 05/08/22 21:16 Iohexol 350 Mg/Ml 100 Ml Infus..Btl IV 05/08/22 21:01 85 ml ONCE ONE Administration Venlafaxine HCl 75 mg 05/09/22 09:00 05/09/22 10:37 Venlafaxine Hcl Er 75 Mg Cap.Er.24h PO Not Given DAILY CEDRIC <Al Joseph MD - Last Filed: 05/09/22 02:26> Medical Decision Making [facility] Narrative Medical decision making narrative: Patient with what sounds like TIA symptoms each day in the evening for the last 3 days. Symptoms and signs were left facial droop, left mouth numbness, apparent aphasia. This was all reported by the . The patient had recovered by the time she was evaluated in the emergency department. Patient also has some chronic lung disease and was noted to be hypoxic on arrival. CT of the chest without contrast did show evidence of pneumonia. The patient was treated with Rocephin and doxycycline for this. CT of the brain also showed some subtle abnormalities, could not rule out small subarachnoid hemorrhage versus infarction, recommended MRI with and without contrast. Case was discussed with Neurology on-call, Dr. Espinoza, who felt the patient could be admitted to the hospital here since there is no emergent condition. Case discussed with Dr. Poole of the hospitalist service and the patient is being admitted to hospital here. <Al Joseph MD - Last Filed: 05/09/22 02:26> Lab Data Lab results reviewed: Yes I reviewed the patient's lab results. <Al Joseph MD - Last Filed: 05/09/22 02:26> Result diagrams: : 05/09/22 05:54 05/09/22 05:54 <DORCAS Mayo - Last Filed: 05/11/22 10:00> Labs: Lab Results 05/08/22 05/08/22 05/08/22 Range/Units 19:53 19:53 19:53 WBC 11.8 H (4.8-10.8) X10*3/uL RBC 3.40 L (4.20-5.50) X10*6/uL Hgb 10.7 L (12.0-16.0) g/dl Hct 36.1 L (37.0-47.0) % MCV 106.2 H (80.0-98.0) fL MCH 31.5 (27.0-33.0) pg MCHC 29.6 L (31.0-35.0) g/dl RDW 15.0 (11.0-16.0) % Plt Count 291 (160-400) X10*3/uL MPV 10.7 (9.4-12.3) fL Immature Gran % (Auto) 1.2 H (0.0-0.4) % Neut % (Auto) 75.1 H (45-73) % Lymph % (Auto) 15.7 L (20-40) % [place] % (Auto) 6.8 (2-11) % Eos % (Auto) 0.7 (0-4) % Baso % (Auto) 0.5 (0-2) % Lymph # (Auto) 1.9 (1.2-4.9) X10*3/uL [place] # (Auto) 0.8 (0.1-1.2) X10*3/uL Eos # (Auto) 0.1 (0.0-0.4) X10*3/uL Baso # (Auto) 0.1 (0.0-0.2) X10*3/uL Abs Immat Gran (auto) 0.14 H (0.00-0.03) X10*3/uL Absolute Neuts (auto) 8.9 H (2.0-8.3) x10*3/uL Absolute Nucleated RBC 0.020 H (0.0-0.012) X10*3/uL Nucleated RBC % (auto) 0.2 (0.0-0.2) /100WBC PT 10.3 (10.0-13.1) SEC INR 0.9 (0.9-1.1) APTT 23.4 L (26.0-36.4) SEC Sodium 144 (135-145) mmol/L Potassium 4.9 D (3.3-5.1) mmol/L Chloride 101 (96-108) mmol/L Carbon Dioxide 38 H (22-29) mmol/L Anion Gap 10 L (12-20) BUN 21 H (9-16) mg/dL Creatinine 0.67 (0.5-1.4) mg/dL Estim Creat Clear Calc 50.5 Estimated GFR > 60 Random Glucose 112 (60-115) mg/dL Lactic Acid (0.5-2.0) mmol/L Calcium 9.7 D (8.4-10.2) mg/dL Total Bilirubin 0.4 (0.0-1.0) mg/dL AST 27 (5-31) U/L ALT 19 (0-31) U/L Alkaline Phosphatase 87 (39-117) U/L Troponin I High Sens (<3.5-17.0) ng/L Total Protein 5.8 L (6.5-8.0) g/dL Albumin 3.5 (3.5-5.0) g/dL Influenza Type A (PCR) (Negative) Influenza Type B (PCR) (Negative) RSV RNA Qual (PCR) (Negative) SARS-CoV-2 RNA (RT-PCR) (Negative) 05/08/22 05/08/22 05/08/22 Range/Units 19:53 19:53 23:02 WBC (4.8-10.8) X10*3/uL RBC (4.20-5.50) X10*6/uL Hgb (12.0-16.0) g/dl Hct (37.0-47.0) % MCV (80.0-98.0) fL MCH (27.0-33.0) pg MCHC (31.0-35.0) g/dl RDW (11.0-16.0) % Plt Count (160-400) X10*3/uL MPV (9.4-12.3) fL Immature Gran % (Auto) (0.0-0.4) % Neut % (Auto) (45-73) % Lymph % (Auto) (20-40) % [place] % (Auto) (2-11) % Eos % (Auto) (0-4) % Baso % (Auto) (0-2) % Lymph # (Auto) (1.2-4.9) X10*3/uL [place] # (Auto) (0.1-1.2) X10*3/uL Eos # (Auto) (0.0-0.4) X10*3/uL Baso # (Auto) (0.0-0.2) X10*3/uL Abs Immat Gran (auto) (0.00-0.03) X10*3/uL Absolute Neuts (auto) (2.0-8.3) x10*3/uL Absolute Nucleated RBC (0.0-0.012) X10*3/uL Nucleated RBC % (auto) (0.0-0.2) /100WBC PT (10.0-13.1) SEC INR (0.9-1.1) APTT (26.0-36.4) SEC Sodium (135-145) mmol/L Potassium (3.3-5.1) mmol/L Chloride (96-108) mmol/L Carbon Dioxide (22-29) mmol/L Anion Gap (12-20) BUN (9-16) mg/dL Creatinine (0.5-1.4) mg/dL Estim Creat Clear Calc Estimated GFR Random Glucose (60-115) mg/dL Lactic Acid 0.8 (0.5-2.0) mmol/L Calcium (8.4-10.2) mg/dL Total Bilirubin (0.0-1.0) mg/dL AST (5-31) U/L ALT (0-31) U/L Alkaline Phosphatase (39-117) U/L Troponin I High Sens 9.9 (<3.5-17.0) ng/L Total Protein (6.5-8.0) g/dL Albumin (3.5-5.0) g/dL Influenza Type A (PCR) NEGATIVE (Negative) Influenza Type B (PCR) NEGATIVE (Negative) RSV RNA Qual (PCR) NEGATIVE (Negative) SARS-CoV-2 RNA (RT-PCR) NEGATIVE (Negative) <DORCAS Mayo - Last Filed: 05/11/22 10:00> Lab Results 05/08/22 05/08/22 05/08/22 Range/Units 19:53 19:53 19:53 WBC 11.8 H (4.8-10.8) X10*3/uL RBC 3.40 L (4.20-5.50) X10*6/uL Hgb 10.7 L (12.0-16.0) g/dl Hct 36.1 L (37.0-47.0) % MCV 106.2 H (80.0-98.0) fL MCH 31.5 (27.0-33.0) pg MCHC 29.6 L (31.0-35.0) g/dl RDW 15.0 (11.0-16.0) % Plt Count 291 (160-400) X10*3/uL MPV 10.7 (9.4-12.3) fL Immature Gran % (Auto) 1.2 H (0.0-0.4) % Neut % (Auto) 75.1 H (45-73) % Lymph % (Auto) 15.7 L (20-40) % [place] % (Auto) 6.8 (2-11) % Eos % (Auto) 0.7 (0-4) % Baso % (Auto) 0.5 (0-2) % Lymph # (Auto) 1.9 (1.2-4.9) X10*3/uL [place] # (Auto) 0.8 (0.1-1.2) X10*3/uL Eos # (Auto) 0.1 (0.0-0.4) X10*3/uL Baso # (Auto) 0.1 (0.0-0.2) X10*3/uL Abs Immat Gran (auto) 0.14 H (0.00-0.03) X10*3/uL Absolute Neuts (auto) 8.9 H (2.0-8.3) x10*3/uL Absolute Nucleated RBC 0.020 H (0.0-0.012) X10*3/uL Nucleated RBC % (auto) 0.2 (0.0-0.2) /100WBC PT 10.3 (10.0-13.1) SEC INR 0.9 (0.9-1.1) APTT 23.4 L (26.0-36.4) SEC Sodium 144 (135-145) mmol/L Potassium 4.9 D (3.3-5.1) mmol/L Chloride 101 (96-108) mmol/L Carbon Dioxide 38 H (22-29) mmol/L Anion Gap 10 L (12-20) BUN 21 H (9-16) mg/dL Creatinine 0.67 (0.5-1.4) mg/dL Estim Creat Clear Calc 50.5 Estimated GFR > 60 Random Glucose 112 (60-115) mg/dL Lactic Acid (0.5-2.0) mmol/L Calcium 9.7 D (8.4-10.2) mg/dL Total Bilirubin 0.4 (0.0-1.0) mg/dL AST 27 (5-31) U/L ALT 19 (0-31) U/L Alkaline Phosphatase 87 (39-117) U/L Troponin I High Sens (<3.5-17.0) ng/L Total Protein 5.8 L (6.5-8.0) g/dL Albumin 3.5 (3.5-5.0) g/dL Influenza Type A (PCR) (Negative) Influenza Type B (PCR) (Negative) RSV RNA Qual (PCR) (Negative) SARS-CoV-2 RNA (RT-PCR) (Negative) 1205/08/22 05/08/22 Range/Units 19:53 19:53 23:02 WBC (4.8-10.8) X10*3/uL RBC (4.20-5.50) X10*6/uL Hgb (12.0-16.0) g/dl Hct (37.0-47.0) % MCV (80.0-98.0) fL MCH (27.0-33.0) pg MCHC (31.0-35.0) g/dl RDW (11.0-16.0) % Plt Count (160-400) X10*3/uL MPV (9.4-12.3) fL Immature Gran % (Auto) (0.0-0.4) % Neut % (Auto) (45-73) % Lymph % (Auto) (20-40) % [place] % (Auto) (2-11) % Eos % (Auto) (0-4) % Baso % (Auto) (0-2) % Lymph # (Auto) (1.2-4.9) X10*3/uL [place] # (Auto) (0.1-1.2) X10*3/uL Eos # (Auto) (0.0-0.4) X10*3/uL Baso # (Auto) (0.0-0.2) X10*3/uL Abs Immat Gran (auto) (0.00-0.03) X10*3/uL Absolute Neuts (auto) (2.0-8.3) x10*3/uL Absolute Nucleated RBC (0.0-0.012) X10*3/uL Nucleated RBC % (auto) (0.0-0.2) /100WBC PT (10.0-13.1) SEC INR (0.9-1.1) APTT (26.0-36.4) SEC Sodium (135-145) mmol/L Potassium (3.3-5.1) mmol/L Chloride (96-108) mmol/L Carbon Dioxide (22-29) mmol/L Anion Gap (12-20) BUN (9-16) mg/dL Creatinine (0.5-1.4) mg/dL Estim Creat Clear Calc Estimated GFR Random Glucose (60-115) mg/dL Lactic Acid 0.8 (0.5-2.0) mmol/L Calcium (8.4-10.2) mg/dL Total Bilirubin (0.0-1.0) mg/dL AST (5-31) U/L ALT (0-31) U/L Alkaline Phosphatase (39-117) U/L Troponin I High Sens 9.9 (<3.5-17.0) ng/L Total Protein (6.5-8.0) g/dL Albumin (3.5-5.0) g/dL Influenza Type A (PCR) NEGATIVE (Negative) Influenza Type B (PCR) NEGATIVE (Negative) RSV RNA Qual (PCR) NEGATIVE (Negative) SARS-CoV-2 RNA (RT-PCR) NEGATIVE (Negative) <Al Joseph MD - Last Filed: 05/09/22 02:26> Imaging Data CT chest without contrast: Radiologist's impression: IMPRESSION: Left lower lobe bronchopneumonia. Elevation of the right hemidiaphragm and atelectasis or consolidation of the adjacent right middle and right lower lobes. Trace right pleural effusion or pleural thickening. 8 mm left lower lobe nodule. According to the UPDATED 2017 Fleischner Society recommendations, the advised follow-up imaging for 6-8 mm nodule: 6-12 and 18-[address] follow-up for low and high risk patients. Multiple thoracic vertebral body compression fractures. There is a moderate T4 vertebral body compression fracture that appears sclerotic and may be recent. <Al Joseph MD - Last Filed: 05/09/22 02:26> CT brain/CTA head and neck: Radiologist's impression: IMPRESSION: - There is increased density and enhancement along the periphery of the right central sulcus. It is difficult to assess whether this reflects cortical increased density as could be seen with cortical laminar necrosis versus sulcal increased density as could be seen in acute subarachnoid hemorrhage with reactive enhancement or alternative pathology. MRI of the brain with and without IV contrast would be helpful in further assessment. There is no mass effect and there are no large acute territorial infarcts. ? -No acute arterial occlusions and no significant arterial stenoses within the head or neck. ? - There are large bilateral mastoid effusions and the left middle ear cavity is partially opacified. Left sphenoid sinus is completely opacified, and the maxillary sinuses are nearly completely opacified bilaterally, and the anterior left ethmoid air cells are partially opacified. ? - Postoperative changes following posterior instrumented fusion from the occiput through the C5 level. There is significant lucency surrounding the C5 lateral mass screws bilaterally compatible with hardware loosening. There is also significant lucency surrounding the distal aspect of the vertical connecting rods that deforms the posterior elements of C7 and T1. There are surgical/orthopedic consultation advised. Advanced spondylitic changes at C5-C6 and C6-C7. There is significant lucency involving the odontoid process measuring near fat density that should be correlated with previous CT studies if available. Chronic appearing widening of the atlantodental interval. ? - Multinodular thyroid gland including a dominant 1.6 cm nodule within the left thyroid lobe that should be further assessed with ultrasound. ? <Al Joseph MD - Last Filed: 05/09/22 02:26> ECG Data Attestation: I personally reviewed and interpreted this ECG as follows: <Al Joseph MD - Last Filed: 05/09/22 02:26> Interpretation: Sinus rhythm with a rate of 92. Prominent R-wave in lead V1. No terrell ST elevation or depression. 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 <Al Joseph MD - Last Filed: 05/09/22 02:26> Discharge Plan Discharge Clinical Impression: Brain TIA, Pneumonia <DORCAS Mayo - Last Filed: 05/11/22 10:00> Patient Disposition: Admitted As Inpatient <DORCAS Mayo - Last Filed: 05/11/22 10:00> Interventions: Admission Worksheet (ED) Last Done: 05/09/22 20:58 <DORCAS aMyo - Last Filed: 05/11/22 10:00> Discharge Date/Time: 05/09/22 08:30 <DORCAS Mayo - Last Filed: 05/11/22 10:00>
--- NOTE | 2022-05-08 19:24 | ED.NEUROSD ---
HPI - Neuro Symptoms/Deficit General Chief Complaint: Neuro Symptoms/Deficit Stated Complaint: left facial droop and numbness Time Seen by Provider: 05/08/22 19:12 Source: patient and family Limitations: no limitations History of Present Illness HPI Narrative: This is a 76-year-old female with a history of myocardial infarction, also pneumonia, respiratory failure, who has been having left-sided facial symptoms and expressive aphasia per the for the last 3 days off and on. The patient states that every evening from the time the patient has been eating supper, she has developed left facial droop and not been able to speak and had some numbness also to the left side of her face. also noted that the patient's hand seemed cold tonight when this happen. Symptoms have now resolved. Patient has had a posterior headache off and on. She also has had chest pain for about a month. She does have chronic dyspnea, is on CPAP at home when she sleeps. notes that she does have history of a collapsed lung. She has had associated nausea and abdominal pain with the TIA like symptoms each evening. Related Data Home Medications Medication Instructions Recorded Confirmed fluticasone propionate 220 2 puff inhalation BID 04/11/20 02/04/22 mcg/actuation HFA aerosol inhaler fluticasone propionate 50 intranasal 04/11/20 02/04/22 mcg/actuation nasal spray,suspension hydroxychloroquine 200 mg tablet 200 mg PO BID 04/11/20 02/04/22 leflunomide 10 mg tablet 10 mg PO DAILY 04/11/20 02/04/22 meclizine 25 mg tablet mg PO 04/11/20 02/04/22 mirtazapine 30 mg tablet 30 mg PO BEDTIME 04/11/20 02/04/22 montelukast 10 mg tablet 10 mg PO DAILY 04/11/20 02/04/22 nitroglycerin 0.4 mg sublingual mg sublingual 04/11/20 02/04/22 tablet tramadol 50 mg tablet 50 mg PO Q6H PRN 04/11/20 02/04/22 aspirin 81 mg tablet,delayed 81 mg PO DAILY 12/30/21 02/04/22 release atorvastatin 40 mg tablet 40 mg PO DAILY 12/30/21 02/04/22 lisinopril 5 mg tablet 5 mg PO DAILY 12/30/21 02/04/22 pantoprazole 40 mg tablet,delayed 40 mg PO DAILY 12/30/21 02/04/22 release prednisone 5 mg tablet 5 mg PO BID 12/30/21 02/04/22 venlafaxine 75 mg capsule,extended 75 mg PO DAILY 12/30/21 02/04/22 release 24 hr famotidine 20 mg tablet 20 mg PO 02/04/22 02/04/22 atorvastatin 40 mg tablet 1 tab PO DAILY 05/09/22 05/09/22 fluticasone propionate 220 2 puff inhalation BID 05/09/22 05/09/22 mcg/actuation HFA aerosol inhaler (Flovent HFA) lisinopril 5 mg tablet 1 tab PO DAILY 05/09/22 05/09/22 losartan 50 mg tablet 1 tab PO QAM 05/09/22 05/09/22 meclizine 25 mg tablet 1 tab PO QAM 05/09/22 05/09/22 metoprolol succinate 100 mg 1.5 tab PO DAILY 05/09/22 05/09/22 tablet,extended release 24 hr mirtazapine 30 mg tablet 1 tab PO BEDTIME 05/09/22 05/09/22 montelukast 10 mg tablet 1 tab PO DAILY 05/09/22 05/09/22 pantoprazole 40 mg tablet,delayed 1 tab PO DAILY 05/09/22 05/09/22 release prednisone 5 mg tablet 1 tab PO TID 05/09/22 05/09/22 ticagrelor 90 mg tablet (Brilinta) 1 tab PO BID 05/09/22 05/09/22 tramadol 50 mg tablet 1 tab PO TID PRN Pain 05/09/22 05/09/22 venlafaxine 75 mg capsule,extended 1 cap PO DAILY 05/09/22 05/09/22 release 24 hr Previous Rx's Medication Instructions Recorded metoprolol succinate 100 mg 100 mg PO DAILY #90 tabs 04/01/22 tablet,extended release 24 hr metoprolol succinate 50 mg 50 mg PO DAILY 90 days #90 tabs 04/01/22 tablet,extended release 24 hr Allergies Allergy/AdvReac Type Severity Reaction Status Date / Time codeine Allergy Severe hives Verified 04/01/22 14:19 Review of Systems Constitutional: Constitutional: Reports as per HPI and Denies fever(s) Eyes: Eyes: Reports as per HPI and Reports no additional eye complaints ENT: Reports system reviewed and no additional complaints, except as documented, Reports as per HPI, Denies nasal congestion, Denies nasal discharge and Denies sore throat Cardiovascular: Cardiovascular: Reports as per HPI, Reports chest pain and Denies dyspnea Respiratory: Respiratory: Reports as per HPI, Denies cough and Denies dyspnea Gastrointestinal: Gastrointestinal: Reports as per HPI, Reports abdominal pain, Reports diarrhea, Reports nausea and Denies vomiting Genitourinary: Genitourinary: Reports as per HPI, Denies hematuria, Denies urinary frequency and Denies dysuria Musculoskeletal: Musculoskeletal: Reports no additional musculoskeletal complaints and Reports numbness Integumentary/Breasts: Skin/Breast: Reports as per HPI and Denies rash Neurologic: Reports as per HPI, Reports Abnormal speech present (Was not getting words out per ), Reports focal weakness and Reports numbness Psychiatric: Psychiatric: Reports no additional psychiatric complaints and Reports as per HPI Endocrine: Endocrine: Reports no additional endocrine complaints and Reports as per HPI Hematologic/Lymphatic: Hematologic/Lymphatic: Reports no additional hematologic/lymphatic complaints, Reports as per HPI and Reports other (No peripheral edema) [facility] Past Medical History Medical History Chronic respiratory failure Chronic restrictive lung disease COPD (chronic obstructive pulmonary disease) Diastolic CHF MORENO (dyspnea on exertion) ILD (interstitial lung disease) Pleuritic chest pain Social History Social History Alcohol intake: never Patient Tobacco Use Status: Never used Tobacco Smoked in Last 30 Days: No Use of substances other than those prescribed or required for medical reasons: No Advance Directives: No Advance Directives Information Provided: No Physical Exam Vital Signs: Vital Signs: Last Vital Signs Temp 98.2 F 05/09/22 01:45 Pulse 84 05/09/22 01:45 Resp 21 H 05/09/22 01:45 BP 138/74 05/09/22 01:45 Pulse Ox 97 05/09/22 01:45 O2 Del Method 05/09/22 01:45 O2 Flow Rate 2 05/09/22 00:37 BMI result Body Mass Index 23.4 Const: General: cooperative, comfortable and no acute distress Orientation/consciousness: patient oriented x3 Neck: Other: Sitting upright, JVD more difficult to assess Neck: Yes normal visual inspection Carotids: normal carotid upstroke Resp: Effort & Inspection: normal respiratory effort and able to speak in complete sentences Auscultation: not clear to auscultation bilaterally (Diminished especially on the right side), no crackles, rales (Few scattered rales), no rhonchi and no wheezes Cardio: Jugular venous distension: no JVD Rate: regular rate Rhythm: regular rhythm Heart sounds: S1 normal heart sound present, S2 normal heart sound present, no gallops, no murmurs and no rubs GI: Inspection: Yes normal to inspection Neuro: Other: No cranial nerve deficits, no motor or sensory deficits. General: patient oriented x3 Speech: Abnormal speech present (Was not getting words out per ) Extrem: Other: 1+ lower leg and ankle edema General: Yes no pedal edema Psych: Appearance: grossly normal Mental Status: mental status grossly normal Speech and movement: Normal speech and movement present Medications Administered Generic Name Dose Route Start Last Admin Trade Name Freq PRN Reason Stop Dose Admin Heparin Sodium (Porcine) 5,000 unit 05/09/22 01:00 05/09/22 01:42 Heparin Sodium,Porcine 5,000 Unit/Ml Vial SUBCUT 5,000 unit Q12H CEDRIC Administration Discontinued Medications Generic Name Dose Route Start Last Admin Trade Name Freq PRN Reason Stop Dose Admin Ceftriaxone Sodium 1 gm/ 50 mls @ 100 mls/hr 05/08/22 22:21 05/08/22 23:47 Sodium Chloride IV 05/08/22 22:50 Infused ONCE ONE Infusion Doxycycline Hyclate 100 mg/ 250 mls @ 166.67 mls/hr 05/08/22 22:22 05/08/22 23:46 Sodium Chloride IV 05/08/22 23:51 166.67 mls/hr ONCE ONE Administration Iohexol 85 ml 05/08/22 21:00 05/08/22 21:16 Iohexol 350 Mg/Ml 100 Ml Infus..Btl IV 05/08/22 21:01 85 ml ONCE ONE Administration MDM - Neuro Symptoms/Deficit MDM Narrative Medical decision making narrative: Patient with chronic lung disease, presented with hypoxia and 3 days of GI symptoms. CT of the chest without contrast did show evidence of pneumonia. The patient is treated with Rocephin and doxycycline. CT of the brain with CTA of the head neck showed some subtle findings consistent for small subarachnoid hemorrhage versus an area of necrosis. Patient is being admitted to the hospital for MRI of the brain with without contrast. Case was discussed with Neurology and with Dr. Poole or of the hospitalist service Lab Data Attestation: I reviewed the patient's lab results. Result diagrams: 05/08/22 19:53 05/08/22 19:53 Labs: Lab Results 05/08/22 05/08/22 05/08/22 Range/Units 19:53 19:53 19:53 WBC 11.8 H (4.8-10.8) X10*3/uL RBC 3.40 L (4.20-5.50) X10*6/uL Hgb 10.7 L (12.0-16.0) g/dl Hct 36.1 L (37.0-47.0) % MCV 106.2 H (80.0-98.0) fL MCH 31.5 (27.0-33.0) pg MCHC 29.6 L (31.0-35.0) g/dl RDW 15.0 (11.0-16.0) % Plt Count 291 (160-400) X10*3/uL MPV 10.7 (9.4-12.3) fL Immature Gran % (Auto) 1.2 H (0.0-0.4) % Neut % (Auto) 75.1 H (45-73) % Lymph % (Auto) 15.7 L (20-40) % [place] % (Auto) 6.8 (2-11) % Eos % (Auto) 0.7 (0-4) % Baso % (Auto) 0.5 (0-2) % Lymph # (Auto) 1.9 (1.2-4.9) X10*3/uL [place] # (Auto) 0.8 (0.1-1.2) X10*3/uL Eos # (Auto) 0.1 (0.0-0.4) X10*3/uL Baso # (Auto) 0.1 (0.0-0.2) X10*3/uL Abs Immat Gran (auto) 0.14 H (0.00-0.03) X10*3/uL Absolute Neuts (auto) 8.9 H (2.0-8.3) x10*3/uL Absolute Nucleated RBC 0.020 H (0.0-0.012) X10*3/uL Nucleated RBC % (auto) 0.2 (0.0-0.2) /100WBC PT 10.3 (10.0-13.1) SEC INR 0.9 (0.9-1.1) APTT 23.4 L (26.0-36.4) SEC Sodium 144 (135-145) mmol/L Potassium 4.9 D (3.3-5.1) mmol/L Chloride 101 (96-108) mmol/L Carbon Dioxide 38 H (22-29) mmol/L Anion Gap 10 L (12-20) BUN 21 H (9-16) mg/dL Creatinine 0.67 (0.5-1.4) mg/dL Estim Creat Clear Calc 50.5 Estimated GFR > 60 Random Glucose 112 (60-115) mg/dL Lactic Acid (0.5-2.0) mmol/L Calcium 9.7 D (8.4-10.2) mg/dL Total Bilirubin 0.4 (0.0-1.0) mg/dL AST 27 (5-31) U/L ALT 19 (0-31) U/L Alkaline Phosphatase 87 (39-117) U/L Troponin I High Sens (<3.5-17.0) ng/L Total Protein 5.8 L (6.5-8.0) g/dL Albumin 3.5 (3.5-5.0) g/dL Influenza Type A (PCR) (Negative) Influenza Type B (PCR) (Negative) RSV RNA Qual (PCR) (Negative) SARS-CoV-2 RNA (RT-PCR) (Negative) 05/08/22 05/08/22 05/08/22 Range/Units 19:53 19:53 23:02 WBC (4.8-10.8) X10*3/uL RBC (4.20-5.50) X10*6/uL Hgb (12.0-16.0) g/dl Hct (37.0-47.0) % MCV (80.0-98.0) fL MCH (27.0-33.0) pg MCHC (31.0-35.0) g/dl RDW (11.0-16.0) % Plt Count (160-400) X10*3/uL MPV (9.4-12.3) fL Immature Gran % (Auto) (0.0-0.4) % Neut % (Auto) (45-73) % Lymph % (Auto) (20-40) % [place] % (Auto) (2-11) % Eos % (Auto) (0-4) % Baso % (Auto) (0-2) % Lymph # (Auto) (1.2-4.9) X10*3/uL [place] # (Auto) (0.1-1.2) X10*3/uL Eos # (Auto) (0.0-0.4) X10*3/uL Baso # (Auto) (0.0-0.2) X10*3/uL Abs Immat Gran (auto) (0.00-0.03) X10*3/uL Absolute Neuts (auto) (2.0-8.3) x10*3/uL Absolute Nucleated RBC (0.0-0.012) X10*3/uL Nucleated RBC % (auto) (0.0-0.2) /100WBC PT (10.0-13.1) SEC INR (0.9-1.1) APTT (26.0-36.4) SEC Sodium (135-145) mmol/L Potassium (3.3-5.1) mmol/L Chloride (96-108) mmol/L Carbon Dioxide (22-29) mmol/L Anion Gap (12-20) BUN (9-16) mg/dL Creatinine (0.5-1.4) mg/dL Estim Creat Clear Calc Estimated GFR Random Glucose (60-115) mg/dL Lactic Acid 0.8 (0.5-2.0) mmol/L Calcium (8.4-10.2) mg/dL Total Bilirubin (0.0-1.0) mg/dL AST (5-31) U/L ALT (0-31) U/L Alkaline Phosphatase (39-117) U/L Troponin I High Sens 9.9 (<3.5-17.0) ng/L Total Protein (6.5-8.0) g/dL Albumin (3.5-5.0) g/dL Influenza Type A (PCR) NEGATIVE (Negative) Influenza Type B (PCR) NEGATIVE (Negative) RSV RNA Qual (PCR) NEGATIVE (Negative) SARS-CoV-2 RNA (RT-PCR) NEGATIVE (Negative) Discharge Plan Discharge Clinical Impression: Brain TIA, Pneumonia
[2022-05-08 19:31] VITALS: BP 177/95; PULSE 96; RESP 21; TEMP 36.7; O2SAT 96
[2022-05-08 20:02] LABS: MANUAL DIFF FLAG NO
[2022-05-08 20:04] LABS: Basophils Absolute Auto 0.1 X10*3/uL (0.0-0.2); Basophils Percent Auto 0.5 % (0-2); Eosinophils Absolute Auto 0.1 X10*3/uL (0.0-0.4); Eosinophils Percent Auto 0.7 % (0-4); Hematocrit 36.1 % (37.0-47.0); Hemoglobin 10.7 g/dl (12.0-16.0); Imm Gran Abs Auto 0.14 X10*3/uL (0.00-0.03); Imm Gran Pct Auto 1.2 % (0.0-0.4); Lymphocytes Absolute Auto 1.9 X10*3/uL (1.2-4.9); Lymphocytes Percent Auto 15.7 % (20-40); Mean Corpuscular HGB Conc 29.6 g/dl (31.0-35.0); Mean Corpuscular Hemoglobin 31.5 pg (27.0-33.0); Mean Corpuscular Volume 106.2 fL (80.0-98.0); Mean Platelet Volume 10.7 fL (9.4-12.3); Monocytes Absolute Auto 0.8 X10*3/uL (0.1-1.2); Monocytes Percent Auto 6.8 % (2-11); NRBC Pct Auto 0.2 /100WBC (0.0-0.2); Neutrophils Absolute Auto 8.9 x10*3/uL (2.0-8.3); Neutrophils Percent Auto 75.1 % (45-73); Platelet Count 291 X10*3/uL (160-400); White Blood Count 11.8 X10*3/uL (4.8-10.8)
[2022-05-08 20:20] LABS: INTERNATIONAL NORM RATIO 0.9 (0.9-1.1); Prothrombin Time 10.3 SEC (10.0-13.1)
[2022-05-08 20:24] LABS: Alanine Aminotransferase 19 U/L (0-31); Albumin Level 3.5 g/dL (3.5-5.0); Alkaline Phosphatase 87 U/L (39-117); Anion Gap 10 (12-20); Aspartate Amino Transferase 27 U/L (5-31); Bilirubin Total 0.4 mg/dL (0.0-1.0); Blood Urea Nitrogen 21 mg/dL (9-16); Calcium 9.7 mg/dL (8.4-10.2); Carbon Dioxide 38 mmol/L (22-29); Chloride 101 mmol/L (96-108); Creatinine Clr Calc Pharmacy 50.5; Estimated Glomerular Filt Rate > 60; Glucose Random 112 mg/dL (60-115); Potassium 4.9 mmol/L (3.3-5.1); Sodium 144 mmol/L (135-145); Total Protein 5.8 g/dL (6.5-8.0)
[2022-05-08 20:26] LABS: Partial Thromboplastin Time 23.4 SEC (26.0-36.4)
[2022-05-08 20:29] LABS: Troponin-I High Sensitivity 9.9 ng/L (<3.5-17.0)
[2022-05-08 20:46] LABS: Influenza A PCR NEGATIVE (Negative); Influenza B PCR NEGATIVE (Negative); Resp Syncy Virus RNA Qual PCR NEGATIVE (Negative); SARS COV2 PCR INHOUSE NEGATIVE (Negative)
[2022-05-08] MEDS: iohexoL 350 MG/ML 100 ML INFUS..BTL 85 ML IV (21:16)
[2022-05-08 22:22] VITALS: BP 148/76; PULSE 92; RESP 22; TEMP 36.9; O2SAT 97
[2022-05-08] MEDS: cefTRIAXone sodium 1 GM in 0.9 % Sodium Chloride 50 ML IV (23:17)
[2022-05-08 23:18] LABS: Lactic Acid 0.8 mmol/L (0.5-2.0)
[2022-05-08] MEDS: Doxycycline Hyclate 100 MG in 0.9 % Sodium Chloride 250 ML 166.67 MG IV (23:46)
[2022-05-09] VITALS (9 sets, daily range): BP systolic 125–139; BP diastolic 61–84; PULSE 77–114; RESP 16–26; TEMP 36.6–36.9; O2SAT 91–99
[2022-05-09] MEDS: Heparin Sodium,Porcine 5,000 UNIT/ML VIAL 5000 UNIT SUBCUT (01:42)
[2022-05-09 06:06] LABS: Basophils Percent Auto 0.3 % (0-2); Eosinophils Absolute Auto 0.1 X10*3/uL (0.0-0.4); Eosinophils Percent Auto 0.6 % (0-4); Hematocrit 32.3 % (37.0-47.0); Hemoglobin 9.6 g/dl (12.0-16.0); Imm Gran Abs Auto 0.14 X10*3/uL (0.00-0.03); Imm Gran Pct Auto 1.2 % (0.0-0.4); Lymphocytes Absolute Auto 1.8 X10*3/uL (1.2-4.9); Lymphocytes Percent Auto 15.8 % (20-40); Mean Corpuscular HGB Conc 29.7 g/dl (31.0-35.0); Mean Corpuscular Volume 104.2 fL (80.0-98.0); Mean Platelet Volume 11.4 fL (9.4-12.3); Monocytes Absolute Auto 0.5 X10*3/uL (0.1-1.2); Monocytes Percent Auto 4.4 % (2-11); Neutrophils Absolute Auto 8.8 x10*3/uL (2.0-8.3); Neutrophils Percent Auto 77.7 % (45-73); PLT CLUMP 1; Red Cell Distribution Width 15.1 % (11.0-16.0); SCAN SMEAR FLAG 1
[2022-05-09 06:11] LABS: MANUAL DIFF FLAG NO; White Blood Count 11.4 X10*3/uL (4.8-10.8)
--- NOTE | 2022-05-09 06:19 | PM.IMHP ---
History of Present Illness Date of Service: 05/09/22 Chief Complaint: facial droop, and weakness 76-year-old Frisian-speaking female with past medical history of COPD, chronic restrictive lung disease, diastolic CHF, and NSTEMI presents to the hospital with complaints of left facial droop, as well as left arm weakness. Patient reports that she had 3 episodes within the past 3 days last episode at 4th 30 p.m. on day of presentation. Patient reports numbness, as well as weakness in her left upper extremity. Slurred speech, and facial droop during these episodes. Each episode lasting 5-10 minutes and resolving spontaneously. Patient has also been complaining of midsternal chest pain, for the past 3 days during the similar episodes. These also last about 10 minutes, vague about how he feels, and the pain is intermittent resolving spontaneously. Patient reports a fall about 15 days ago, but does not recall hitting her head. Patient does answer questions appropriately but very hard to get much history out of her and after repeat questions multiple times with the help of an court interpreter. She denies any abdominal pain at this time, has nausea with no vomiting, no diarrhea or constipation, no urinary symptoms and no lower extremity edema. On arrival to the ED patient found to be tachycardic with heart rate of 103, blood pressure 175/97, satting 90% on room air Labs are significant for WBC count of 11.8, hemoglobin of 10.7, hematocrit 36.1, Chest CT shows left lower lobe bronchopneumonia, consolidation of the adjacent right middle and right lower lobes, and an 8 mm nodule Head and neck CT angiogram shows increased density and enhancement along the periphery of the right central sulcus, difficult to assess whether this reflects cortical increased density as could be seen with cortical laminar necrosis versus increased density as could be seen in acute subarachnoid hemorrhage with reactive enhancement or alternative pathology. This case was discussed with Neurology, recommended admission to the hospital with MRI in the morning. Patient also has postoperative changes following posterior instrument fusion with significant lucency compatible with hardware loosening Patient will be admitted for further management Review of Systems Review of Systems: Yes all other systems are reviewed and are negative [facility] Medical History Chronic respiratory failure Chronic restrictive lung disease COPD (chronic obstructive pulmonary disease) Diastolic CHF MORENO (dyspnea on exertion) ILD (interstitial lung disease) Pleuritic chest pain Social History Alcohol intake: never Patient Tobacco Use Status: Never used Tobacco Smoked in Last 30 Days: No Use of substances other than those prescribed or required for medical reasons: No Advance Directives: No Advance Directives Information Provided: No Meds Allergies Allergy/AdvReac Type Severity Reaction Status Date / Time codeine Allergy Severe hives Verified 04/01/22 14:19 Active Medications: Current Medications Acetaminophen (Acetaminophen 325 Mg Tablet) 650 mg PO Q6H PRN PRN Reason: Pain, Mild (Pain Scale 1-3) Heparin Sodium (Porcine) (Heparin Sodium,Porcine 5,000 Unit/Ml Vial) 5,000 unit SUBCUT Q12H [facility] Last Admin: 05/09/22 01:42 Dose: 5,000 unit Ondansetron HCl (Ondansetron Hcl 4 Mg/2 Ml Vial) 4 mg IVPUSH Q8H PRN PRN Reason: Nausea and Vomiting Sodium Chloride (0.9 % Sodium Chloride Flush 3 Ml Syringe) 3 ml IVFLUSH QSHIFT [facility] Home Medications Medication Instructions Recorded Confirmed Last Taken Type fluticasone propionate 220 2 puff inhalation BID 04/11/20 02/04/22 Unknown History mcg/actuation HFA aerosol inhaler fluticasone propionate 50 intranasal 04/11/20 02/04/22 Unknown History mcg/actuation nasal spray,suspension hydroxychloroquine 200 mg tablet 200 mg PO BID 04/11/20 02/04/22 Unknown History leflunomide 10 mg tablet 10 mg PO DAILY 04/11/20 02/04/22 Unknown History meclizine 25 mg tablet mg PO 04/11/20 02/04/22 Unknown History mirtazapine 30 mg tablet 30 mg PO BEDTIME 04/11/20 02/04/22 Unknown History montelukast 10 mg tablet 10 mg PO DAILY 04/11/20 02/04/22 Unknown History nitroglycerin 0.4 mg sublingual mg sublingual 04/11/20 02/04/22 Unknown History tablet tramadol 50 mg tablet 50 mg PO Q6H PRN 04/11/20 02/04/22 Unknown History aspirin 81 mg tablet,delayed 81 mg PO DAILY 12/30/21 02/04/22 Unknown History release atorvastatin 40 mg tablet 40 mg PO DAILY 12/30/21 02/04/22 Unknown History lisinopril 5 mg tablet 5 mg PO DAILY 12/30/21 02/04/22 Unknown History pantoprazole 40 mg tablet,delayed 40 mg PO DAILY 12/30/21 02/04/22 Unknown History release prednisone 5 mg tablet 5 mg PO BID 12/30/21 02/04/22 Unknown History venlafaxine 75 mg capsule,extended 75 mg PO DAILY 12/30/21 02/04/22 Unknown History release 24 hr famotidine 20 mg tablet 20 mg PO 02/04/22 02/04/22 Unknown History atorvastatin 40 mg tablet 1 tab PO DAILY 05/09/22 05/09/22 Unknown History fluticasone propionate 220 2 puff inhalation BID 05/09/22 05/09/22 Unknown History mcg/actuation HFA aerosol inhaler (Flovent HFA) lisinopril 5 mg tablet 1 tab PO DAILY 05/09/22 05/09/22 Unknown History losartan 50 mg tablet 1 tab PO QAM 05/09/22 05/09/22 Unknown History meclizine 25 mg tablet 1 tab PO QAM 05/09/22 05/09/22 Unknown History metoprolol succinate 100 mg 1.5 tab PO DAILY 05/09/22 05/09/22 Unknown History tablet,extended release 24 hr mirtazapine 30 mg tablet 1 tab PO BEDTIME 05/09/22 05/09/22 Unknown History montelukast 10 mg tablet 1 tab PO DAILY 05/09/22 05/09/22 Unknown History pantoprazole 40 mg tablet,delayed 1 tab PO DAILY 05/09/22 05/09/22 Unknown History release prednisone 5 mg tablet 1 tab PO TID 05/09/22 05/09/22 Unknown History ticagrelor 90 mg tablet (Brilinta) 1 tab PO BID 05/09/22 05/09/22 Unknown History tramadol 50 mg tablet 1 tab PO TID PRN Pain 05/09/22 05/09/22 Unknown History venlafaxine 75 mg capsule,extended 1 cap PO DAILY 05/09/22 05/09/22 Unknown History release 24 hr Physical Exam Vital Signs and Narrative: Vital Signs: Last Vital Signs Temp 97.9 F 05/09/22 04:21 Pulse 82 12/02/22 04:21 Resp 26 H 05/09/22 04:21 BP 133/61 05/09/22 04:21 Pulse Ox 97 05/09/22 04:21 O2 Del Method 05/09/22 04:21 O2 Flow Rate 2 05/09/22 04:21 BMI result Body Mass Index 23.4 Const: Other: Flat affect, slow to answer questions General: cooperative and no acute distress Orientation/consciousness: patient oriented x3 Eyes: General: appearance normal, both eyes and all related structures Resp: Other: Bilateral crackles Effort & Inspection: normal respiratory effort Cardio: Rate: regular rate Rhythm: regular rhythm GI: Palpation (GI): Soft to palpation Auscultation: normal bowel sounds Skin: General skin exam: no rashes or lesions noted Neuro: Other: No neurological deficits General: patient oriented x3 Cognition (Neuro): normal cognition Extrem: General: Yes normal to inspection and Yes no pedal edema Results Labs CBC and Chem 7: 05/09/22 05:54 05/08/22 19:53 Labs: Laboratory Results - last 24 hr 05/08/22 05/08/22 05/08/22 19:53 19:53 19:53 MCV 106.2 H MCH 31.5 MCHC 29.6 L RDW 15.0 Plt Count 291 MPV 10.7 Immature Gran % (Auto) 1.2 H Neut % (Auto) 75.1 H Lymph % (Auto) 15.7 L [place] % (Auto) 6.8 Eos % (Auto) 0.7 Baso % (Auto) 0.5 Lymph # (Auto) 1.9 [place] # (Auto) 0.8 Eos # (Auto) 0.1 Baso # (Auto) 0.1 Abs Immat Gran (auto) 0.14 H Absolute Neuts (auto) 8.9 H Absolute Nucleated RBC 0.020 H Nucleated RBC % (auto) 0.2 PT 10.3 INR 0.9 APTT 23.4 L Anion Gap 10 L Estim Creat Clear Calc 50.5 Estimated GFR > 60 Random Glucose 112 Lactic Acid Calcium 9.7 D Total Bilirubin 0.4 AST 27 ALT 19 Alkaline Phosphatase 87 Troponin I High Sens Total Protein 5.8 L Albumin 3.5 Influenza Type A (PCR) Influenza Type B (PCR) RSV RNA Qual (PCR) SARS-CoV-2 RNA (RT-PCR) 05/08/22 05/08/2205/08/22 19:53 19:53 23:02 MCV MCH MCHC RDW Plt Count MPV Immature Gran % (Auto) Neut % (Auto) Lymph % (Auto) [place] % (Auto) Eos % (Auto) Baso % (Auto) Lymph # (Auto) [place] # (Auto) Eos # (Auto) Baso # (Auto) Abs Immat Gran (auto) Absolute Neuts (auto) Absolute Nucleated RBC Nucleated RBC % (auto) PT INR APTT Anion Gap Estim Creat Clear Calc Estimated GFR Random Glucose Lactic Acid 0.8 Calcium Total Bilirubin AST ALT Alkaline Phosphatase Troponin I High Sens 9.9 Total Protein Albumin Influenza Type A (PCR) NEGATIVE Influenza Type B (PCR) NEGATIVE RSV RNA Qual (PCR) NEGATIVE SARS-CoV-2 RNA (RT-PCR) NEGATIVE 05/09/22 05:54 MCV 104.2 H MCH 31.0 MCHC 29.7 L RDW 15.1 Plt Count MPV 11.4 Immature Gran % (Auto) 1.2 H Neut % (Auto) 77.7 H Lymph % (Auto) 15.8 L [place] % (Auto) 4.4 Eos % (Auto) 0.6 Baso % (Auto) 0.3 Lymph # (Auto) 1.8 [place] # (Auto) 0.5 Eos # (Auto) 0.1 Baso # (Auto) 0.0 Abs Immat Gran (auto) 0.14 H Absolute Neuts (auto) 8.8 H Absolute Nucleated RBC 0.000 Nucleated RBC % (auto) 0.0 PT INR APTT Anion Gap Estim Creat Clear Calc Estimated GFR Random Glucose Lactic Acid Calcium Total Bilirubin AST ALT Alkaline Phosphatase Troponin I High Sens Total Protein Albumin Influenza Type A (PCR) Influenza Type B (PCR) RSV RNA Qual (PCR) SARS-CoV-2 RNA (RT-PCR) Imaging Radiologist's Impressions: Impressions Chest CT 05/08/22 21:10 IMPRESSION: Left lower lobe bronchopneumonia. Elevation of the right hemidiaphragm and atelectasis or consolidation of the adjacent right middle and right lower lobes. Trace right pleural effusion or pleural thickening. 8 mm left lower lobe nodule. According to the UPDATED 2017 Fleischner Society recommendations, the advised follow-up imaging for 6-8 mm nodule: 6-12 and 18-[address] follow-up for low and high risk patients. Multiple thoracic vertebral body compression fractures. There is a moderate T4 vertebral body compression fracture that appears sclerotic and may be recent. Fleischner guidelines were followed. Head/Neck CTA 05/08/22 21:10 IMPRESSION: - There is increased density and enhancement along the periphery of the right central sulcus. It is difficult to assess whether this reflects cortical increased density as could be seen with cortical laminar necrosis versus sulcal increased density as could be seen in acute subarachnoid hemorrhage with reactive enhancement or alternative pathology. MRI of the brain with and without IV contrast would be helpful in further assessment. There is no mass effect and there are no large acute territorial infarcts. -No acute arterial occlusions and no significant arterial stenoses within the head or neck. - There are large bilateral mastoid effusions and the left middle ear cavity is partially opacified. Left sphenoid sinus is completely opacified, and the maxillary sinuses are nearly completely opacified bilaterally, and the anterior left ethmoid air cells are partially opacified. - Postoperative changes following posterior instrumented fusion from the occiput through the C5 level. There is significant lucency surrounding the C5 lateral mass screws bilaterally compatible with hardware loosening. There is also significant lucency surrounding the distal aspect of the vertical connecting rods that deforms the posterior elements of C7 and T1. There are surgical/orthopedic consultation advised. Advanced spondylitic changes at C5-C6 and C6-C7. There is significant lucency involving the odontoid process measuring near fat density that should be correlated with previous CT studies if available. Chronic appearing widening of the atlantodental interval. - Multinodular thyroid gland including a dominant 1.6 cm nodule within the left thyroid lobe that should be further assessed with ultrasound. Findings discussed with Dr. Joseph at 10:03 PM on 05/08/2022. Assessment and Plan (1) Brain TIA: Status: Acute (2) Community acquired pneumonia: Status: Acute (3) Chest pain: Status: Acute Plan 76-year-old female with past medical history of CAD status post NSTEMI, history of interstitial lung disease, underlying COPD, as well as diastolic CHF presents the hospital with complaints of transient symptoms of slurred speech, left arm weakness # TIA versus subarachnoid hemorrhage - head CT angiogram shows concern for possible cortical laminar necrosis versus subarachnoid hemorrhage - has intermittent symptoms of slurred speech and left upper extremity weakness - this was discussed with Neurology by ED physician, recommended admission to the hospital and obtain MRI with and without contrast - patient hemodynamically stable with no significant neurological deficits at this time # community acquired pneumonia - CT of the chest as above - 90% on room air on arrival currently on 2 L of oxygen - will treat with IV antibiotics - follow cultures # chest pain - troponin negative - likely related to pneumonia - underlying coronary artery disease - no EKG changes suggestive of ACS - Tylenol p.r.n. # pulmonary nodule - 8 mm pulmonary nodule seen as above - will need outpatient follow-up with repeat imaging in 6-12 months recommendation # loosened hardware in cervical spine - will require outpatient follow-up with Orthopedic surgery DVT prophylaxis: SCDs Quality Stroke Does the patient have a stroke diagnosis?: No VTE Prior VTE?: No VTE Risk Level:: Medical - moderate - high VTE Device Contraindication: Treatment Not Tolerated VTE Drug Contraindication: Treatment Not Tolerated
[2022-05-09 06:27] LABS: Anion Gap 10 (12-20); Blood Urea Nitrogen 19 mg/dL (9-16); Calcium 8.8 mg/dL (8.4-10.2); Carbon Dioxide 32 mmol/L (22-29); Chloride 104 mmol/L (96-108); Creatinine Clr Calc Pharmacy 60.4; Estimated Glomerular Filt Rate > 60; Glucose Random 114 mg/dL (60-115); Potassium 5.1 mmol/L (3.3-5.1); Sodium 141 mmol/L (135-145)
[2022-05-09 06:41] LABS: Platelet Count 245 X10*3/uL (160-400)
[2022-05-09] MEDS: Azithromycin 500 MG in 0.9 % Sodium Chloride 250 ML 125 MG IV (07:50)
--- NOTE | 2022-05-09 08:06 | PHA.MEDREC ---
Pharmacy Consult ? Medication Reconciliation Pharmacy has completed the medication reconciliation. NO LONGER ON BRIL[facility] PER MANDO CARDENAS
[2022-05-09] MEDS: 0.9 % Sodium Chloride Flush 3 ML SYRINGE IVFLUSH ×2 (08:07→22:40)
--- NOTE | 2022-05-09 12:08 | PM.NEUROCN ---
History of Present Illness Data of Consult Service Date: 05/09/22 Primary Care Provider: Marty Gonzalez MD [facility] Reason for consult: abnormal head CT 76 years old woman who came to hospital with 3 episodes of left hand weakness or clumsiness difficulty speaking and facial flatness. Third episode lasted longer and she came to emergency room. In hospital she was noted to have nonfocal exam. Her imaging revealed an abnormal head CT prompting this consultation. ER physician talked to me in the middle of night for possibility of subarachnoid hemorrhage. After listening to the whole story my suggestion was to admit her and get an MRI of brain for further definition. Patient did not have any headache nausea vomiting. Symptoms were resolved when patient was in emergency room. Review of Systems Review of Systems: No trauma or headache PMFSH Past Medical History Medical History Chronic respiratory failure Chronic restrictive lung disease COPD (chronic obstructive pulmonary disease) Diastolic CHF MORENO (dyspnea on exertion) ILD (interstitial lung disease) Pleuritic chest pain Social History Social History Alcohol intake: never Patient Tobacco Use Status: Never used Tobacco Smoked in Last 30 Days: No Use of substances other than those prescribed or required for medical reasons: No Advance Directives: No Advance Directives Information Provided: No Meds Allergies Allergy/AdvReac Type Severity Reaction Status Date / Time codeine Allergy Severe hives Verified 04/01/22 14:19 Active Medications: Current Medications Acetaminophen (Acetaminophen 325 Mg Tablet) 650 mg PO Q6H PRN PRN Reason: Pain, Mild (Pain Scale 1-3) Atorvastatin Calcium (Atorvastatin Calcium 40 Mg Tablet) 40 mg PO DAILY [facility] Last Admin: 05/09/22 10:30 Dose: Not Given Fluticasone Propionate (Fluticasone Propionate 250 Mcg Blst.W.Dev) 2 puff INHALE RBID [facility] Azithromycin 500 mg/ Sodium (Chloride) 250 mls @ 125 mls/hr IV Q24H [facility] Last Infusion: 05/09/22 10:30 Dose: Infused Ceftriaxone Sodium 1 gm/ (Sodium Chloride) 50 mls @ 100 mls/hr IV Q24H [facility] Lisinopril (Lisinopril 5 Mg Tablet) 5 mg PO DAILY [facility]; Protocol Last Admin: 12/02/22 10:31 Dose: Not Given Meclizine HCl (Meclizine Hcl 25 Mg Tablet) 25 mg PO DAILY [facility] Last Admin: 05/09/22 10:30 Dose: Not Given Metoprolol Succinate (Metoprolol Succinate Er 50 Mg Tab.Er.24h) 150 mg PO DAILY [facility]; Protocol Last Admin: 05/09/22 10:31 Dose: Not Given Mirtazapine (Mirtazapine 30 Mg Tablet) 30 mg PO BEDTIME [facility] Montelukast Sodium (Montelukast Sodium 10 Mg Tablet) 10 mg PO DAILY [facility] Last Admin: 05/09/22 10:31 Dose: Not Given Omeprazole (Omeprazole 20 Mg Capsule.Dr) 1 mg PO DAILY@0630 [facility] Ondansetron HCl (Ondansetron Hcl 4 Mg/2 Ml Vial) 4 mg IVPUSH Q8H PRN PRN Reason: Nausea and Vomiting Prednisone (Prednisone 5 Mg Tablet) 5 mg PO TID [facility] Last Admin: 05/09/22 10:31 Dose: Not Given Sodium Chloride (0.9 % Sodium Chloride Flush 3 Ml Syringe) 3 ml IVFLUSH QSHIFT [facility] Last Admin: 05/09/22 08:07 Dose: 3 ml Venlafaxine HCl (Venlafaxine Hcl Er 75 Mg Cap.Er.24h) 75 mg PO BEDTIME [facility] Home Medications Medication Instructions Recorded Confirmed Last Taken Type aspirin 81 mg tablet,delayed 81 mg PO DAILY 12/30/21 05/09/22 Unknown History release atorvastatin 40 mg tablet 1 tab PO DAILY 05/09/22 05/09/22 Unknown History fluticasone propionate 220 2 puff inhalation BID 05/09/22 05/09/22 Unknown History mcg/actuation HFA aerosol inhaler (Flovent HFA) lisinopril 5 mg tablet 1 tab PO DAILY 05/09/22 05/09/22 Unknown History meclizine 25 mg tablet 1 tab PO QAM 05/09/22 05/09/22 Unknown History metoprolol succinate 100 mg 1.5 tab PO DAILY 05/09/22 05/09/22 Unknown History tablet,extended release 24 hr mirtazapine 30 mg tablet 1 tab PO BEDTIME 05/09/22 05/09/22 Unknown History montelukast 10 mg tablet 1 tab PO DAILY 05/09/22 05/09/22 Unknown History pantoprazole 40 mg tablet,delayed 1 tab PO DAILY 05/09/22 05/09/22 Unknown History release prednisone 5 mg tablet 1 tab PO TID 05/09/22 05/09/22 Unknown History tramadol 50 mg tablet 1 tab PO TID PRN Pain 05/09/22 05/09/22 Unknown History venlafaxine 75 mg capsule,extended 1 cap PO DAILY 05/09/22 05/09/22 Unknown History release 24 hr Physical Exam Vital Signs: Vital Signs: Last Vital Signs Temp 97.9 F 05/09/22 06:26 Pulse 81 05/09/22 07:19 Resp 17 05/09/22 07:19 BP 139/69 05/09/22 07:19 Pulse Ox 99 05/09/22 07:19 O2 Del Method 05/09/22 07:19 O2 Flow Rate 2 05/09/22 07:19 BMI result Body Mass Index 23.4 Neuro: Other: she was alert and awake with normal spontaneity of speech fluency comprehension and affect. She was asking for breakfast. There was minimal left-sided facial flatness. Visual mccullough are full. Pupils were equal and reactive to light. Right hand was significantly arthritic. Left hand strength was 4 or 5. Plantars were equivocal. She had generalized arthritis Results Labs CBC & Chem 7: 05/09/22 05:54 05/09/22 05:54 Labs: Short CBC 05/08/22 05/09/22 Range/Units 19:53 05:54 WBC 11.8 H 11.4 H (4.8-10.8) X10*3/uL Hgb 10.7 L 9.6 L (12.0-16.0) g/dl Hct 36.1 L 32.3 L (37.0-47.0) % Plt Count 291 245 (160-400) X10*3/uL BMP 05/08/22 05/09/22 19:53 05:54 Sodium 144 141 Potassium 4.9 D 5.1 Chloride 101 104 Carbon Dioxide 38 H 32 H BUN 21 H 19 H Creatinine 0.67 0.56 Calcium 9.7 D 8.8 D Liver Function 05/08/22 Range/Units 19:53 Total Bilirubin 0.4 (0.0-1.0) mg/dL AST 27 (5-31) U/L ALT 19 (0-31) U/L Alkaline Phosphatase 87 (39-117) U/L Albumin 3.5 (3.5-5.0) g/dL diffuse cerebral and cerebellar atrophy was noted. Also noted was right frontoparietal cortical abnormality with somewhat guarded oral hyperdensity. Assessment and Plan (1) Abnormal head CT: Status: Acute her head scan is suggestive of either subacute subarachnoid hemorrhage or malignancy. MRI of brain with and without contrast is recommended for better definition. This lesion is likely the cause of her symptoms Procedures Date of Service Date of Service: 05/09/22
--- NOTE | 2022-05-09 13:10 | MHC.CM.PN ---
This leader writer meet with patient, and daughter @ bedside for CM assessment. - Patient lives @ daughter's house with - Uses walker and wheelchair @ baseline - Daughter cares for patient - CPAP @ night and w/ naps during the day - PCP Dr. Garcia - OBS noticed delivered - Vax'd and boosted - HCP in place- copy is at home - D/C plan- home w/ VNA as needed, daughter does not want patient to go to rehab, wants to take pt home @ d/c - Daughter to transport
[2022-05-09] MEDS: predniSONE 5 MG TABLET PO ×2 (15:41→22:41)
--- NOTE | 2022-05-09 17:48 | PM.EVENT ---
Event Note Date of Service: 05/09/22 Event Note: Patient already seen and examined by hospitalist team this morning Seen and examined again-seems similar, denies any new complaint of chest pain or shortness of breath or abdominal pain fever chills. Physical exam unchanged Assessment and plan coordinated in H&P note In addition seen by Neurology: And CT scan reviewed subsequently MRI was done: There is a late subacute subarachnoid blood filling the right central sulcus which coincides with the findings associated on the recent CT angiogram of the head from 05/08/2022. The etiology of this blood is uncertain. No identifiable mass or worrisome enhancement at or adjacent to the hemorrhage. As per the family patient fell a week ago on the right side? Question above changes might be traumatic. Discussed with Neurology currently clinically stable will continue to monitor Neuro follow-up in the morning, patient condition deteriorated patient is to go to ICU
[2022-05-09] MEDS: Fluticasone Propionate 250 MCG BLST.W.DEV 2 PUFF INHALE (20:12)
[2022-05-09] MEDS: hydrOXYzine HCL 25 MG TABLET PO (20:24)
[2022-05-09] MEDS: Venlafaxine HCl ER 75 MG CAP.ER.24H PO (22:40)
[2022-05-09] MEDS: cefTRIAXone sodium 1 GM in 0.9 % Sodium Chloride 50 ML IV (22:41)
[2022-05-09] MEDS: Mirtazapine 30 MG TABLET PO (22:41)
[2022-05-10] VITALS (8 sets, daily range): BP systolic 120–163; BP diastolic 60–78; PULSE 65–104; RESP 12–18; TEMP 36.3–37; O2SAT 93–98
[2022-05-10] MEDS: Azithromycin 500 MG in 0.9 % Sodium Chloride 250 ML 125 MG IV (06:14)
[2022-05-10] MEDS: predniSONE 5 MG TABLET PO ×3 (08:37→20:19)
[2022-05-10] MEDS: Meclizine HCl 25 MG TABLET PO (08:46)
[2022-05-10] MEDS: Montelukast Sodium 10 MG TABLET PO (08:46)
[2022-05-10] MEDS: Metoprolol Succinate ER 50 MG TAB.ER.24H 150 MG PO (08:46)
[2022-05-10] MEDS: Atorvastatin Calcium 40 MG TABLET PO (08:47)
[2022-05-10] MEDS: lisinopriL 5 MG TABLET PO (08:47)
[2022-05-10] MEDS: 0.9 % Sodium Chloride Flush 3 ML SYRINGE IVFLUSH ×2 (08:48→17:32)
--- NOTE | 2022-05-10 12:27 | HO.PM.IMPN ---
Subjective Subjective Date of Service: 05/10/22 Interval History: Abnormal CT head, Review of Systems Denies any new complaints a chest pain or nausea or vomiting or any new weakness or numbness Physical Exam Vital Signs: Vital Signs: Last Vital Signs Temp 97.9 F 05/10/22 08:00 Pulse 97 05/10/22 08:00 Resp 12 05/10/22 08:00 BP 120/70 05/10/22 08:00 Pulse Ox 98 05/10/22 08:00 O2 Del Method 05/10/22 08:00 O2 Flow Rate 2 05/10/22 03:37 BMI result Body Mass Index 23.4 Appearance: Alert.? Oriented X3.? not in distress.? cvs: [id number], [id number]. res: air entry simished has few sacttered wheezin abd: no rebound or guarding ,nt, bs present. ext pulses present , no cyanosis . neuro: axo3 , nonfocal. Objective Data Active Medications Acetaminophen (Acetaminophen 325 Mg Tablet) 650 mg PO Q6H PRN PRN Reason: Pain, Mild (Pain Scale 1-3) Atorvastatin Calcium (Atorvastatin Calcium 40 Mg Tablet) 40 mg PO DAILY [facility] Last Admin: 05/10/22 08:47 Dose: 40 mg Documented By: JACKSON Fluticasone Propionate (Fluticasone Propionate 250 Mcg Blst.W.Dev) 2 puff INHALE RBID [facility] Last Admin: 05/10/22 07:59 Dose: Not Given Documented By: RISHI Non-Admin Reason: Med Not Available Azithromycin 500 mg/ Sodium (Chloride) 250 mls @ 125 mls/hr IV Q24H [facility] Last Infusion: 05/10/22 09:06 Dose: 0 mls/hr Documented By: JACKSON Ceftriaxone Sodium 1 gm/ (Sodium Chloride) 50 mls @ 100 mls/hr IV Q24H [facility] Last Infusion: 05/09/22 23:53 Dose: 0 mls/hr Documented By: BATSHEVA Lisinopril (Lisinopril 5 Mg Tablet) 5 mg PO DAILY [facility]; Protocol Last Admin: 05/10/22 08:47 Dose: 5 mg Documented By: JACKSON Meclizine HCl (Meclizine Hcl 25 Mg Tablet) 25 mg PO DAILY [facility] Last Admin: 05/10/22 08:46 Dose: 25 mg Documented By: JACKSON Metoprolol Succinate (Metoprolol Succinate Er 50 Mg Tab.Er.24h) 150 mg PO DAILY [facility]; Protocol Last Admin: 05/10/22 08:46 Dose: 150 mg Documented By: JACKSON Mirtazapine (Mirtazapine 30 Mg Tablet) 30 mg PO BEDTIME [facility] Last Admin: 05/09/22 22:41 Dose: 30 mg Documented By: BATSHEVA Montelukast Sodium (Montelukast Sodium 10 Mg Tablet) 10 mg PO DAILY [facility] Last Admin: 05/10/22 08:46 Dose: 10 mg Documented By: JACKSON Omeprazole (Omeprazole 20 Mg Capsule.Dr) 20 mg PO DAILY@0630 [facility] Ondansetron HCl (Ondansetron Hcl 4 Mg/2 Ml Vial) 4 mg IVPUSH Q8H PRN PRN Reason: Nausea and Vomiting Prednisone (Prednisone 5 Mg Tablet) 5 mg PO TID [facility] Last Admin: 05/10/22 08:37 Dose: 5 mg Documented By: JACKSON Sodium Chloride (0.9 % Sodium Chloride Flush 3 Ml Syringe) 3 ml IVFLUSH QSHIFT [facility] Last Admin: 05/10/22 08:48 Dose: 3 ml Documented By: JACKSON Venlafaxine HCl (Venlafaxine Hcl Er 75 Mg Cap.Er.24h) 75 mg PO BEDTIME [facility] Last Admin: 05/09/22 22:40 Dose: 75 mg Documented By: BATSHEVA Labs CBC & Chem 7: 05/09/22 05:54 05/09/22 05:54 Microbiology Microbiology Results: Microbiology 05/08/22 23:02 Blood Culture - Preliminary Blood - Venous Prelim: GPC Gram Stain only 05/08/22 23:02 Blood Culture - Preliminary Blood - Venous No growth after 24 hours. Assessment and Plan (1) Abnormal head CT: Status: Acute (2) Community acquired pneumonia: Status: Acute Plan 76-year-old female with past medical history of CAD status post NSTEMI, history of interstitial lung disease, underlying COPD, as well as diastolic CHF presents the hospital with complaints of transient symptoms of slurred speech, left arm weakness # TIA versus subarachnoid hemorrhage - head CT angiogram shows concern for possible cortical laminar necrosis versus subarachnoid hemorrhage - has intermittent symptoms of slurred speech and left upper extremity weakness ?MRI was done: There is a late subacute subarachnoid blood filling the right central sulcus which coincides with the findings associated on the recent CT angiogram of the head from 05/08/2022. The etiology of this blood is uncertain. No identifiable mass or worrisome enhancement at or adjacent to the hemorrhage. As per the family patient fell a week ago on the right side?? Question above changes might be traumatic. Discussed with Neurology currently clinically stable will continue to monitor pt eval # community acquired pneumonia/hx of copd - CT of the chest as above - 90% on room air on arrival currently on 2 L of oxygen continue nebs ,oxygen ,IV antibiotics - follow cultures # chest pain - troponin negative - likely related to pneumonia - underlying coronary artery disease - no EKG changes suggestive of ACS - Tylenol p.r.n. # pulmonary nodule - 8 mm pulmonary nodule seen as above - will need outpatient follow-up with repeat imaging in 6-12 months recommendation # loosened hardware in cervical spine noted thought to be require outpatient follow-up with Orthopedic surgery [facility] inpatient need:community acquired pneumonia, abnormal brain mri -need iv antibiotics , neurology follow up Quality Stroke Does the patient have a stroke diagnosis?: No VTE Prior VTE?: No VTE Risk Level:: Medical - moderate - high VTE Device Contraindication: Treatment Not Tolerated VTE Drug Contraindication: Treatment Not Tolerated
[2022-05-10] MEDS: Acetaminophen 325 MG TABLET 650 MG PO (16:30)
[2022-05-10] MEDS: Mirtazapine 30 MG TABLET PO (19:38)
[2022-05-10] MEDS: Venlafaxine HCl ER 75 MG CAP.ER.24H PO (19:38)
[2022-05-10] MEDS: cefTRIAXone sodium 1 GM in 0.9 % Sodium Chloride 50 ML IV (19:42)
[2022-05-10] MEDS: Fluticasone Propionate 250 MCG BLST.W.DEV 2 PUFF INHALE (20:23)
[2022-05-11] VITALS (7 sets, daily range): BP systolic 137–175; BP diastolic 60–82; PULSE 74–97; RESP 12–20; TEMP 36.2–37.1; O2SAT 93–98
[2022-05-11] MEDS: Azithromycin 500 MG in 0.9 % Sodium Chloride 250 ML 125 MG IV (06:21)
[2022-05-11] MEDS: 0.9 % Sodium Chloride Flush 3 ML SYRINGE IVFLUSH ×3 (06:22→19:44)
[2022-05-11] MEDS: Fluticasone Propionate 250 MCG BLST.W.DEV 2 PUFF INHALE ×2 (07:56→18:57)
[2022-05-11] MEDS: Montelukast Sodium 10 MG TABLET PO (09:09)
[2022-05-11] MEDS: Metoprolol Succinate ER 50 MG TAB.ER.24H 150 MG PO (09:09)
[2022-05-11] MEDS: Atorvastatin Calcium 40 MG TABLET PO (09:10)
[2022-05-11] MEDS: Omeprazole 20 MG CAPSULE.DR PO (09:10)
[2022-05-11] MEDS: lisinopriL 5 MG TABLET PO (09:11)
[2022-05-11] MEDS: predniSONE 5 MG TABLET PO ×3 (09:11→19:43)
[2022-05-11] MEDS: Meclizine HCl 25 MG TABLET PO (09:11)
--- NOTE | 2022-05-11 12:55 | P.PNIM_ITS ---
Subjective Subjective Date of Service: 05/12/22 Interval History: Abnormal CT head, Review of Systems Denies any new complaints a chest pain or nausea or vomiting or any new weakness or numbness Physical Exam Vital Signs: Vital Signs: Last Vital Signs Temp 98.2 F 05/11/22 12:00 Pulse 97 05/11/22 12:00 Resp 12 05/11/22 12:00 BP 168/79 H 05/11/22 12:00 Pulse Ox 93 05/11/22 12:00 O2 Del Method 05/11/22 08:00 O2 Flow Rate 2 05/11/22 08:00 BMI result Body Mass Index 23.4 Appearance: Alert.? Oriented X3.? not in distress.? cvs: rrr, [id number]. res: air entry simished has few sacttered wheezin abd: no rebound or guarding ,nt, bs present. ext pulses present , no cyanosis . neuro: axo3 , nonfocal. Objective Data Active Medications Acetaminophen (Acetaminophen 325 Mg Tablet) 650 mg PO Q6H PRN PRN Reason: Pain, Mild (Pain Scale 1-3) Last Admin: 05/10/22 16:30 Dose: 650 mg Documented By: JACKSON Albuterol/Ipratropium (Albuterol/Iprat 2.5/0.5mg 3 Ml Ampul.Neb) 3 ml INHALE RQ4H PRN PRN Reason: sob Atorvastatin Calcium (Atorvastatin Calcium 40 Mg Tablet) 40 mg PO DAILY [facility] Last Admin: 05/11/22 09:10 Dose: 40 mg Documented By: JACKSON Fluticasone Propionate (Fluticasone Propionate 250 Mcg Blst.W.Dev) 2 puff INHALE RBID [facility] Last Admin: 05/11/22 07:56 Dose: 2 puff Documented By: RISHI Azithromycin 500 mg/ Sodium (Chloride) 250 mls @ 125 mls/hr IV Q24H [facility] Last Infusion: 05/11/22 09:25 Dose: 0 mls/hr Documented By: JACKSON Ceftriaxone Sodium 1 gm/ (Sodium Chloride) 50 mls @ 100 mls/hr IV Q24H [facility] Last Infusion: 05/10/22 20:20 Dose: 0 mls/hr Documented By: BATSHEVA Lisinopril (Lisinopril 5 Mg Tablet) 5 mg PO DAILY [facility]; Protocol Last Admin: 05/11/22 09:11 Dose: 5 mg Documented By: JACKSON Meclizine HCl (Meclizine Hcl 25 Mg Tablet) 25 mg PO DAILY [facility] Last Admin: 05/11/22 09:11 Dose: 25 mg Documented By: JACKSON Metoprolol Succinate (Metoprolol Succinate Er 50 Mg Tab.Er.24h) 150 mg PO DAILY [facility]; Protocol Last Admin: 05/11/22 09:09 Dose: 150 mg Documented By: JACKSON Mirtazapine (Mirtazapine 30 Mg Tablet) 30 mg PO BEDTIME [facility] Last Admin: 05/10/22 19:38 Dose: 30 mg Documented By: BATSHEVA Montelukast Sodium (Montelukast Sodium 10 Mg Tablet) 10 mg PO DAILY [facility] Last Admin: 05/11/22 09:09 Dose: 10 mg Documented By: JACKSON Omeprazole (Omeprazole 20 Mg Capsule.Dr) 20 mg PO DAILY@0630 [facility] Last Admin: 05/11/22 09:10 Dose: 20 mg Documented By: JACKSON Ondansetron HCl (Ondansetron Hcl 4 Mg/2 Ml Vial) 4 mg IVPUSH Q8H PRN PRN Reason: Nausea and Vomiting Prednisone (Prednisone 5 Mg Tablet) 5 mg PO TID [facility] Last Admin: 05/11/22 09:11 Dose: 5 mg Documented By: JACKSON Sodium Chloride (0.9 % Sodium Chloride Flush 3 Ml Syringe) 3 ml IVFLUSH QSHIFT [facility] Last Admin: 05/11/22 09:09 Dose: Not Given Documented By: JACKSON Non-Admin Reason: IV Running Venlafaxine HCl (Venlafaxine Hcl Er 75 Mg Cap.Er.24h) 75 mg PO BEDTIME [facility] Last Admin: 05/10/22 19:38 Dose: 75 mg Documented By: BATSHEVA Labs CBC & Chem 7: 05/09/22 05:54 05/09/22 05:54 Microbiology Microbiology Results: Microbiology 05/08/22 23:02 Blood Culture - Final Blood - Venous Coag negative Staphylococcus 05/08/22 23:02 Blood Culture - Preliminary Blood - Venous No growth after 48 hours. Assessment and Plan (1) Abnormal head CT: Status: Acute (2) Community acquired pneumonia: Status: Acute Plan 76-year-old female with past medical history of CAD status post NSTEMI, history of interstitial lung disease, underlying COPD, as well as diastolic CHF presents the hospital with complaints of transient symptoms of slurred speech, left arm weakness # TIA versus subarachnoid hemorrhage - head CT angiogram shows concern for possible cortical laminar necrosis versus subarachnoid hemorrhage - has intermittent symptoms of slurred speech and left upper extremity weakness ?MRI was done: There is a late subacute subarachnoid blood filling the right central sulcus which coincides with the findings associated on the recent CT angiogram of the head from 05/08/2022. The etiology of this blood is uncertain. No identifiable mass or worrisome enhancement at or adjacent to the hemorrhage. As per the family patient fell a week ago on the right side?? Question above changes might be traumatic. Discussed with Neurology currently clinically stable will continue to monitor pt eval # community acquired pneumonia/hx of copd - CT of the chest as above - 90% on room air on arrival currently on 2 L of oxygen continue nebs ,oxygen ,IV antibiotics - follow cultures # chest pain - troponin negative - likely related to pneumonia - underlying coronary artery disease - no EKG changes suggestive of ACS - Tylenol p.r.n. # pulmonary nodule - 8 mm pulmonary nodule seen as above - will need outpatient follow-up with repeat imaging in 6-12 months recommendation # loosened hardware in cervical spine noted thought to be? require outpatient follow-up with Orthopedic surgery [facility] inpatient need:community acquired pneumonia-need iv antibiotics ,family concerned for patient is generalised weak and fall at home -wants reeval PT-? rehab placement Quality Stroke Does the patient have a stroke diagnosis?: No VTE Prior VTE?: No VTE Risk Level:: Medical - moderate - high VTE Device Contraindication: Treatment Not Tolerated VTE Drug Contraindication: Treatment Not Tolerated
[2022-05-11] MEDS: Acetaminophen 325 MG TABLET 650 MG PO (13:10)
[2022-05-11] MEDS: Venlafaxine HCl ER 75 MG CAP.ER.24H PO (19:43)
[2022-05-11] MEDS: Mirtazapine 30 MG TABLET PO (19:44)
[2022-05-11] MEDS: cefTRIAXone sodium 1 GM in 0.9 % Sodium Chloride 50 ML IV (19:44)
[2022-05-12 03:32] VITALS: BP 132/82; PULSE 77; RESP 18; TEMP 36.1; O2SAT 99
[2022-05-12] MEDS: Azithromycin 500 MG in 0.9 % Sodium Chloride 250 ML 125 MG IV (06:33)
[2022-05-12 07:19] VITALS: PULSE 86; RESP 16; O2SAT 92
[2022-05-12] MEDS: Fluticasone Propionate 250 MCG BLST.W.DEV 2 PUFF INHALE (07:19)
[2022-05-12 08:00] VITALS: BP 140/80; PULSE 84; RESP 16; TEMP 36.9
[2022-05-12] MEDS: predniSONE 5 MG TABLET PO (08:27)
[2022-05-12] MEDS: Atorvastatin Calcium 40 MG TABLET PO (08:27)
[2022-05-12] MEDS: Montelukast Sodium 10 MG TABLET PO (08:27)
[2022-05-12] MEDS: lisinopriL 5 MG TABLET PO (08:28)
[2022-05-12] MEDS: Meclizine HCl 25 MG TABLET PO (08:28)
[2022-05-12] MEDS: Metoprolol Succinate ER 50 MG TAB.ER.24H 150 MG PO (08:35)
[2022-05-12 10:16] VITALS: BP 140/80; PULSE 84
[2022-05-12] MEDS: Acetaminophen 325 MG TABLET 650 MG PO (10:40)
[2022-05-12 11:12] VITALS: BP 137/72; PULSE 77; RESP 16; TEMP 36.8; O2SAT 93
--- NOTE | 2022-05-12 11:19 | P.DS_ITS ---
DS: Providers Provider Date of Service: 05/12/22 Date of admission: 05/11/22 11:45 Primary care physician: Marty Gonzalez MD Consults: 05/09/22 00:52 Consult to Neurology Routine Consulting Provider: [facility] Reason for consultation: TIA Has provider been notified: No DS: Diagnosis Discharge Diagnosis (1) Abnormal head CT: Status: Acute (2) Community acquired pneumonia: Status: Acute (3) Pneumonia: Status: Acute (4) COPD (chronic obstructive pulmonary disease): Status: Acute (5) Acute hypoxemic respiratory failure: Status: Acute DS: Summary Hospital Course Hospital Course: 76-year-old Ma[place]-speaking female with past medical history of COPD, chronic restrictive lung disease, diastolic CHF, and NSTEMI presents to the hospital with complaints of left facial droop, as well as left arm weakness.? Patient reports that she had 3 episodes within the past 3 days last episode at 4th 30 p.m. on day of presentation.? Patient reports numbness, as well as weakness in her left upper extremity.? Slurred speech, and facial droop during these episodes.? Each episode lasting 5-10 minutes and resolving spontaneously.? Patient has also been complaining of midsternal chest pain, for the past 3 days during the similar episodes.? These also last about 10 minutes, vague about how he feels, and the pain is intermittent resolving spontaneously.? Patient reports a fall about 15 days ago, but does not recall hitting her head. 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 She denies any abdominal pain at this time, has nausea with no vomiting, no diarrhea or constipation, no urinary symptoms and no lower extremity edema.? On arrival to the ED patient found to be tachycardic with heart rate of 103, blood pressure 175/97, satting 90% on room air Labs are significant for WBC count of 11.8, hemoglobin of 10.7, hematocrit 36.1, Chest CT shows left lower lobe bronchopneumonia, consolidation of the adjacent right middle and right lower lobes, and an 8 mm nodule Head and neck CT angiogram shows increased density and enhancement along the periphery of the right central sulcus, difficult to assess whether this reflects cortical increased density as could be seen with cortical laminar necrosis versus increased density as could be seen in acute subarachnoid hemorrhage with reactive enhancement or alternative pathology.? This case was discussed with Neurology, recommended admission to the hospital with MRI in the morning.? Patient also has postoperative changes following posterior instrument fusion with significant lucency compatible with hardware loosening Patient will be admitted for further management. Hospital course: patient came with ?left hand weakness or clumsiness difficulty speaking and facial flatness-ct and brain mri done(please see Ct head/MRI in imaging section below) -showed some right frontoparietal cortical abnormality-possible late subacute subarachnoid blood filling the right central sulcus which coincides with the findings associated on the recent . Above abnormality thought to be traumatic since patient fall 1 week back on the same side side and hit her head. Consider outpatient follow-up with Neurology as per PCP. patient has chronic respiratory failure-also has mild hypoxia due to pneumonia on top of that: Patient currently denies any shortness of breath or cough, added p.o. antibiotics, Patient takes oxygen at nighttime at home-Home oxygen evaluation before discharge. Consider follow-up outpatient with PCP and Pulmonary. Please repeat chest imaging in 3-4 weeks to see resolution of pneumonia. Seen by PT-recommended to go home with home OT. Above management discussed with patient and her family in detail length about understand and in agreement with above plan, Time Spent with Patient Time attestation: Total time spent providing and/or coordinating discharge services: Discharge coordination time: Greater than 30 minutes Quality: Safe Use of Opioids Does Pt have an Active Cancer Diagnosis on the Problem List?: No Quality: Stroke Does the patient have a stroke diagnosis?: No Physical Exam Vital Signs: Vital Signs: Last Vital Signs Temp 98.2 F 05/12/22 11:12 Pulse 77 05/12/22 11:12 Resp 16 05/12/22 11:12 BP 137/72 05/12/22 11:12 Pulse Ox 93 05/12/22 11:12 O2 Del Method 05/12/22 11:12 O2 Flow Rate 3 05/12/22 08:00 BMI result Body Mass Index 23.4 ? Appearance: Alert.? Oriented X3.? not in distress.? cvs: rrr, [id number]. res: air entry simished has few sacttered wheezin abd: no rebound or guarding ,nt, bs present. ext pulses present , no cyanosis . neuro: axo3 , nonfocal. DS: Data Data Completed and Pending Labs on day of discharge: Preliminary micro results at discharge 05/08/22 23:02 Blood Culture - Preliminary Blood - Venous No growth after [address] scan - head: Radiologist's impression: ITS Impressions Chest CT 05/08/22 21:10 IMPRESSION: Left lower lobe bronchopneumonia. Elevation of the right hemidiaphragm and atelectasis or consolidation of the adjacent right middle and right lower lobes. Trace right pleural effusion or pleural thickening. 8 mm left lower lobe nodule. According to the UPDATED 2017 Fleischner Society recommendations, the advised follow-up imaging for 6-8 mm nodule: 6-12 and 18-[address] follow-up for low and high risk patients. Multiple thoracic vertebral body compression fractures. There is a moderate T4 vertebral body compression fracture that appears sclerotic and may be recent. Fleischner guidelines were followed. Head/Neck CTA 05/08/22 21:10 IMPRESSION: - There is increased density and enhancement along the periphery of the right central sulcus. It is difficult to assess whether this reflects cortical increased density as could be seen with cortical laminar necrosis versus sulcal increased density as could be seen in acute subarachnoid hemorrhage with reactive enhancement or alternative pathology. MRI of the brain with and without IV contrast would be helpful in further assessment. There is no mass effect and there are no large acute territorial infarcts. -No acute arterial occlusions and no significant arterial stenoses within the head or neck. - There are large bilateral mastoid effusions and the left middle ear cavity is partially opacified. Left sphenoid sinus is completely opacified, and the maxillary sinuses are nearly completely opacified bilaterally, and the anterior left ethmoid air cells are partially opacified. - Postoperative changes following posterior instrumented fusion from the occiput through the C5 level. There is significant lucency surrounding the C5 lateral mass screws bilaterally compatible with hardware loosening. There is also significant lucency surrounding the distal aspect of the vertical connecting rods that deforms the posterior elements of C7 and T1. There are surgical/orthopedic consultation advised. Advanced spondylitic changes at C5-C6 and C6-C7. There is significant lucency involving the odontoid process measuring near fat density that should be correlated with previous CT studies if available. Chronic appearing widening of the atlantodental interval. - Multinodular thyroid gland including a dominant 1.6 cm nodule within the left thyroid lobe that should be further assessed with ultrasound. Findings discussed with Dr. Joseph at 10:03 PM on 05/08/2022. KUB X-Ray 05/09/22 09:05 IMPRESSION: 1. Nonobstructive bowel gas pattern. 2. Mild colonic stool burden. 3. Residual contrast within the renal collecting system/urinary bladder. Brain MRI 05/09/22 14:50 IMPRESSION: There is a late subacute subarachnoid blood filling the right central sulcus which coincides with the findings associated on the recent CT angiogram of the head from 05/08/2022. The etiology of this blood is uncertain. No identifiable mass or worrisome enhancement at or adjacent to the hemorrhage. Otherwise no acute intracranial finding. Specifically no evidence of acute territorial infarct. Numerous chronic small vessel ischemic changes are visualized within the periventricular white matter and riki. Additional incidental findings include fluid filling the mastoid air cells and middle ear cavities. Severe paranasal sinus disease. Persistent hyperplastic primary vitreous of the left globe. Chronic changes of a craniocervical fusion. Discharge Plan Discharge Anticipated Discharge Date/Time: 05/12/22 11:00 Patient Disposition: Home Health Service Discharge Diagnosis: late subacute subarachnoid blood filling the right central sulcus ( possible traumatic), pneumonia Referrals: [facility] [Other] - 1 Week Marty Gonzalez MD [Primary Care Provider] - 1 Week Discharge Medications: New cefuroxime axetil 500 mg tablet 500 mg PO BID Qty: 14 0RF azithromycin 500 mg tablet 500 mg PO DAILY 5 Days Qty: 5 0RF Continued atorvastatin 40 mg tablet 1 tab PO DAILY venlafaxine 75 mg capsule,extended release 24hr 1 cap PO DAILY metoprolol succinate 100 mg tablet extended release 24 hr 1.5 tab PO DAILY prednisone 5 mg tablet 1 tab PO TID tramadol 50 mg tablet 1 tab PO TID PRN (Reason: Pain) meclizine 25 mg tablet 1 tab PO QAM pantoprazole 40 mg tablet,delayed release (DR/EC) 1 tab PO DAILY mirtazapine 30 mg tablet 1 tab PO BEDTIME montelukast 10 mg tablet 1 tab PO DAILY fluticasone propionate [Flovent HFA] 220 mcg/actuation HFA aerosol inhaler 2 puff inhalation BID lisinopril 5 mg tablet 1 tab PO DAILY aspirin 81 mg tablet,delayed release (DR/EC) 81 mg PO DAILY Discharge Orders: Discharge Order (Routine); Ordered 05/12/22 Ordered By: Alfonso Almonte Diet: Advance to usual diet Activity on Discharge: As tolerated Stand Alone Forms: Patient Portal Discharge page Care Plan Goals: patient came with ?left hand weakness or clumsiness difficulty speaking and facial flatness-ct and brain mri done -showed some right frontoparietal cortical abnormality-possible late subacute subarachnoid blood filling the right central sulcus which coincides with the findings associated on the recent . Above abnormality thought to be traumatic since patient fall 1 week back on the same side side and hit her head. Consider outpatient follow-up with Neurology as per PCP. patient has chronic respiratory failure-also has mild hypoxia due to pneumonia on top of that: Patient currently denies any shortness of breath or cough, added p.o. antibiotics, Patient takes oxygen at nighttime at home-Home oxygen evaluation before discharge. Consider follow-up outpatient with PCP and Pulmonary. Please consider outpatient chest imaging in 3-4 weeks to see resolution of pneumonia. Health Concerns: As above. Plan of Treatment: As above. Assessment: As above. Discharge Date/Time: 05/12/22 13:47
--- NOTE | 2022-05-12 11:29 | W.MHC.F2F ---
Service Date Service Date: 05/12/22 Encounter Date of encounter: 05/12/22 Encounter: COPD/pneumonia, abnormal CT scan head, fall Reasons for Services Signs and symptoms assessed: Monitor for shortness of breath, fall Reason for retirement: medication management, medication treatment and teach disease management Reason for physical therapy: home safety and mobility, therapeutic exercises, restore joint function, gait/transfer training, assess need for DME, ADL training, energy conservation and other Reason for occupational therapy: home safety and mobility, therapeutic exercises, restore joint function, gait/transfer training, assess need for DME, ADL training, energy conservation and other MD Overseeing Care: Marty Gonzalez Homebound: Leaving the home is medically contraindicated at this time without the asist of a device and/or another person due th the listed conditions above and below. Reason homebound: weakness related to hospital stay Homebound supporting statement: Patient is generalized weak post hospitalization, has pneumonia as well as fall history-need help with going to appointments and blood draws as well as need home PT /OT. Certification: Based on the above findings, I certify that this patient is confined to the home and needs intermittent retirement care, physical therapy and/or speech therapy, or continues to need occupational therapy. The patient is under my care, and I have initiated the establishment of the plan of care. The patient will be followed by a physician who will periodically review the plan of care.
[2022-05-12 11:44] VITALS: PULSE 120; PULSE 140; PULSE 81; O2SAT 85; O2SAT 86; O2SAT 92
--- NOTE | 2022-05-12 12:16 | MHC.CM.PN ---
pt dcd home with [facility] pper respiratory pt refusing recommended 02 liters
--- NOTE | 2022-05-12 13:50 | PC.NURSE ---
Iv was removed, patient tele monitor removed. Patient and family provided with discharge teaching, including medication regimen and follow up instructions ( in [place]).
== END 2022-05-12 13:47 | disposition home health service (06) | DRG 85 ==
LOC: HO.ED 19:22 → HO.EDOVER 05-09 01:02 → HO.IMC 05-09 19:29
PROVIDERS: Physician Assistant; Admitting Provider Internal Medicine; Emergency Provider Emergency Medicine; PCP Family Medicine; Visit Provider Internal Medicine
DX: S06.6X0A Traumatic subarachnoid hemorrhage without loss of consciousness, initial encounter (principal); J18.9 Pneumonia, unspecified organism; I50.32 Chronic diastolic (congestive) heart failure; T84.226A Displacement of internal fixation device of vertebrae, initial encounter; J44.0 Chronic obstructive pulmonary disease with (acute) lower respiratory infection; J96.11 Chronic respiratory failure with hypoxia; W19.XXXA Unspecified fall, initial encounter; R91.1 Solitary pulmonary nodule; R29.810 Facial weakness; I25.2 Old myocardial infarction; Z20.822 Contact with and (suspected) exposure to COVID-19; Z79.51 Long term (current) use of inhaled steroids; Z79.52 Long term (current) use of systemic steroids; Z79.82 Long term (current) use of aspirin; Z79.899 Other long term (current) drug therapy
CPT/HCPCS: 0241U; 36415; 70496; 70498; 70553; 71250; 74018; 80048; 80053; 83605; 84484; 85025; 85610; 85730; 87040; 87147; 87205; 93005; 94640; 97116; 97162; 97530; 99219; 99285; A9585; J0456; J0696; Q9967

== ENCOUNTER → 2022-06-27 14:19 | Outpatient (BNVA) | payer MEDICARE, SELFPAY | PROVIDERS: PCP Internal Medicine; Visit Provider Hospitalist | DX: J96.11 Chronic respiratory failure with hypoxia (principal); J96.12 Chronic respiratory failure with hypercapnia; J41.0 Simple chronic bronchitis; J98.4 Other disorders of lung; J84.9 Interstitial pulmonary disease, unspecified; G47.33 Obstructive sleep apnea (adult) (pediatric); R06.00 Dyspnea, unspecified; I50.32 Chronic diastolic (congestive) heart failure | CPT/HCPCS: 99212 ==

== ENCOUNTER 2022-07-28 11:58 | Outpatient (REF) | payer MEDICARE, SELFPAY ==
[2022-07-28 12:12] LABS: MANUAL DIFF FLAG NO
[2022-07-28 12:32] LABS: Basophils Percent Auto 0.2 % (0-2); Eosinophils Absolute Auto 0.1 X10*3/uL (0.0-0.4); Eosinophils Percent Auto 0.6 % (0-4); Hematocrit 38.5 % (37.0-47.0); Hemoglobin 11.4 g/dl (12.0-16.0); Imm Gran Abs Auto 0.24 X10*3/uL (0.00-0.03); Imm Gran Pct Auto 1.8 % (0.0-0.4); Lymphocytes Absolute Auto 1.5 X10*3/uL (1.2-4.9); Lymphocytes Percent Auto 10.8 % (20-40); Mean Corpuscular HGB Conc 29.6 g/dl (31.0-35.0); Mean Corpuscular Hemoglobin 30.6 pg (27.0-33.0); Mean Corpuscular Volume 103.5 fL (80.0-98.0); Mean Platelet Volume 10.6 fL (9.4-12.3); Monocytes Absolute Auto 0.9 X10*3/uL (0.1-1.2); Monocytes Percent Auto 6.9 % (2-11); Neutrophils Absolute Auto 10.8 x10*3/uL (2.0-8.3); Neutrophils Percent Auto 79.7 % (45-73); Platelet Count 279 X10*3/uL (160-400); Red Blood Count 3.72 X10*6/uL (4.20-5.50); Red Cell Distribution Width 13.9 % (11.0-16.0); White Blood Count 13.5 X10*3/uL (4.8-10.8)
[2022-07-28 12:51] LABS: Anion Gap 14 (12-20); Blood Urea Nitrogen 17 mg/dL (9-16); Calcium 9.1 mg/dL (8.4-10.2); Carbon Dioxide 32 mmol/L (22-29); Chloride 105 mmol/L (96-108); Estimated Glomerular Filt Rate > 60; Glucose Random 159 mg/dL (60-115); Potassium 4.2 mmol/L (3.3-5.1); Sodium 147 mmol/L (135-145)
[2022-07-28 14:43] LABS: Erythrocyte Sedimentation Rate 62 MM/HR (0-20)
[2022-08-01 11:18] LABS: Immunoglobulin E 13 kU/L (<OR=114)
== END 2022-07-28 11:59 | disposition home or self-care (01) ==
LOC: HO.LAB 11:58
PROVIDERS: PCP Internal Medicine; Visit Provider Hospitalist
DX: J44.9 Chronic obstructive pulmonary disease, unspecified (principal)
CPT/HCPCS: 36415; 80048; 82785; 85025; 85652

== ENCOUNTER → 2022-08-29 12:51 | Outpatient (BNVA) | payer MEDICARE, SELFPAY | PROVIDERS: PCP Internal Medicine; Visit Provider Hospitalist | DX: J96.11 Chronic respiratory failure with hypoxia (principal); J41.0 Simple chronic bronchitis; J98.4 Other disorders of lung; J84.9 Interstitial pulmonary disease, unspecified; I50.32 Chronic diastolic (congestive) heart failure; G47.33 Obstructive sleep apnea (adult) (pediatric); Z99.81 Dependence on supplemental oxygen; Z99.89 Dependence on other enabling machines and devices; Z79.899 Other long term (current) drug therapy | CPT/HCPCS: 99212 ==